=== PATIENT | female | born 1990 | race Caucasian/White ===

== ENCOUNTER 2022-02-11 19:36 | Emergency (ER) | payer SELFPAY ==
[2022-02-11 19:53] VITALS: BP 110/75; PULSE 83; RESP 20; TEMP 36.8; O2SAT 100; BMI 20.6
--- NOTE | 2022-02-11 20:30 | ED.NURSE ---
Pt stating she needs to use bathroom. Stone [employer]ader offering to walk pt to bathroom. Pt then refuses, stating she cannot use this bathroom and will use bathroom at home. Pt states she would like to leave. MD at bedside. D/c instructions printed and given to pt and pt's as they are walking out door. Pt and pt's refuse conference interpreter to go over d/c planning and verbalize understanding of all instructions. Pt leaves ER with all belongings.
--- NOTE | 2022-02-11 20:31 | ED.ANXIETY ---
HPI - Anxiety General Chief Complaint: Anxiety Stated Complaint: Allergic Reaction Time Seen by Provider: 02/11/22 19:55 History of Present Illness HPI narrative: This patient comes in with her and daughter and reports tingling feeling in her mouth and concern about her breathing after eating some sausage. She is hyperventilating and states that her tongue and lips are tingly as are her hands and fingers. She is very anxious and dramatic. 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 Related Data Previous Rx's Medication Instructions Recorded propranolol 10 mg tablet 10 - 20 mg PO BID #60 tabs 01/30/22 Allergies Allergy/AdvReac Type Severity Reaction Status Date / Time Ringer's solution,lactated Allergy Unknown Verified 02/11/22 20:06 Review of Systems Status of ROS: Reports: unobtainable due to mental status [facility] Medical History (Updated 02/11/22 @ 20:31 by Tristan Stubbs MD) Anxiety Fibroadenoma of left breast History of abnormal cervical Pap smear History of COVID-19 (03/2021) History of hypothyroidism History of iron deficiency anemia Intermittent asthma Menorrhagia Postural orthostatic tachycardia syndrome Family History (Updated 10/17/21 @ 15:53 by Teresa Greene) Aunt Uterine cancer Maternal Grandmother Uterine cancer Paternal Grandfather Diabetes High blood pressure Exam Narrative: Exam Narrative: Constitutional: Well-developed, well-nourished, no acute distress. HEENT: Normocephalic, atraumatic. No sign of angioedema. Oropharynx appears normal with no sign of airway compromise. Neck: Normal range of motion. Nontender. Supple. Heart: Regular. No murmurs. Normal rate. Intact distal pulses. Lungs: Clear to auscultation. No chest discomfort. No wheezes, rhonchi, or rales. Abdomen: Normal bowel sounds. Nontender. No rebound tenderness. Genitalia: Deferred. Back: No midline tenderness. Normal range of motion. Extremities: Normal range of motion. No injury. Skin: Intact. No rash. Warm. No erythema or pallor. Neurologic: No altered sensation. No weakness. Alert and oriented. Psychiatric: She is very anxious and rather uncooperative. Nursing notes and vitals signs are reviewed. Const: Vital Signs, click to edit/add: Vital Signs - 24 hr 02/11/22 19:53 Temperature 98.2 F Pulse Rate [Right Pulse Oximeter] 83 Respiratory Rate 20 Blood Pressure [Ri ght Upper Arm] 110/75 Pulse Oximetry 100 Oxygen Delivery Me thod Room Air Course Vital Signs Vital signs: Initial Vital Signs Temperature 98.2 F 02/11/22 19:53 Temperature Source Temporal Artery Scan 02/11/22 19:53 Pulse Rate 83 02/11/22 19:53 Pulse Rhythm 02/11/22 19:53 Respiratory Rate 20 02/11/22 19:53 Blood Pressure 110/75 02/11/22 19:53 Blood Pressure Mean 86 02/11/22 19:53 Blood Pressure Position Sitting 02/11/22 19:53 Pulse Oximetry 100 02/11/22 19:53 Oxygen Delivery Method 02/11/22 19:53 Vital Signs Temperature 98.2 F 02/11/22 19:53 Pulse Rate 83 02/11/22 19:53 Respiratory Rate 20 02/11/22 19:53 Blood Pressure 110/75 02/11/22 19:53 Pulse Oximetry 100 02/11/22 19:53 Oxygen Delivery Method 02/11/22 19:53 Temperature 98.2 F 02/11/22 19:53 Pulse Rate 83 02/11/22 19:53 Respiratory Rate 20 02/11/22 19:53 Blood Pressure 110/75 02/11/22 19:53 Pulse Oximetry 100 02/11/22 19:53 Oxygen Delivery Method 02/11/22 19:53 MDM - Anxiety MDM Narrative Medical decision making narrative: This patient comes in with some tingling sensation in her tongue after eating some sausage. She is hyperventilating and very anxious and dramatic. I offered to treat with Ativan which she declined. I discussed diagnostic options including lateral view x-ray of the neck, chest x-ray, and ultrasound. The patient is declining everything I am offering. I asked her which she would like or what she felt would help. She did not answer this question but continues to say that her tongue and lips feel tingly. This kind a conversation went round and round until I stated that I would return and asked again if they would desire any treatment or diagnostic options. The patient and her want to return home. They do have loratadine at home which can be used for relief. I advised her to slow her breathing as this is what is likely causing her tingling feeling. Discharge Plan Discharge Clinical Impression: Anxiety, Adverse food reaction, Hyperventilation Patient Disposition: Home, Self-Care Condition: Stable Additional Instructions: Use loratadine as needed and directed. Return if worsening symptoms happen. Prescriptions: No Action propranolol 10 mg tablet 10 - 20 mg PO BID Qty: 60 0RF Stand Alone Forms: [employer] Info Instructions
--- OUTSIDE RECORDS SUMMARY | 2022-02-11 20:37 | XMS_ITS ---
:1990 Author Care Team Providers Name Role Phone Carli Diaz Primary Care Provider Unavailable Allergies Code Code System Name Reaction Severity Status Onset NKDA ? Notes: lactate ringers electrolyte uriel ution Medications Name Status Start Date Stop Date ? ? albuterol sulfate HFA 90 mcg/actuation aerosol inhaler Active ? Not available INHALE 2 PUFFS EVERY 4 HOURS NEEDED COVID-19 test specimen collection Active ? Not available TEST DIRECTED fluconazole 100 mg tablet Active ? Not av ailable TAKE 1 TABLET BY MOUTH DAILY FOR 10 DAYS fluoxetine 20 mg capsule Active ? Not micah ilable TAKE 1 CAPSULE (20 MG TOTAL) BY MOUTH DAILY. hydroxyzine pamoate 25 mg capsule Active ? Not available ID NOW COVID-19 Test Kit Active ? Not micah ilable TEST DIRECTED TODAY lorazepam 1 mg tablet Active ? Not availa ble metoprolol tartrate 25 mg tablet Active ? Not available TAKE 0.5 TABLETS (12.5 MG TOTAL) BY MOUTH 2 (TWO) TIMES A DAY. multivitamin tablet Active ? Not availabl e Take 1 tablet every day by oral route. nystatin 100,000 unit/mL oral suspension Active ? Not available SWISH AND SWALLOW 5 ML BY MOUTH 4 TIMES DAILY. omeprazole 20 mg capsule,delayed release Active ? Not available TAKE 1 CAPSULE (20 MG TOTAL) BY MOUTH DAILY. June Montes [facility] spacer Active ? N ot available USE DIRECTED WITH INHALER prednisone 20 mg tablet Active ? Not avai lable TAKE TWO TABLETS BY MOUTH DAILY propranolol 10 mg tablet Active ? Not micah ilable TAKE 1-2 TABLETS BY MOUTH TWICE A DAY sertraline 25 mg tablet Active ? Not avai lable Take 1 tablet every day by oral route at bedtime. Notes: vitamins Problems Notes: Problem: Asthma Problem: derm atitis Procedures None recorded. Results Lab Results None recorded. Past Encounters 07/02/2021 Major Depressive Disorder Rg Walters MD: [id number] , [place] [address], Ph. 06/11/2021 Palpitations Rg Walters MD: [address] [place] [address], Ph. Social History None recorded. Vaccine List Notes: had one dose of COVID vaccine b ut had allergic rxn (Pfizer) Plan of Care Reminders Provider Appointments None recorded. ? ? Lab None recorded. ? ? Referral None recorded. ? ? Procedures None recorded. ? ? Surgeries None recorded. ? ? Imaging None recorded. ? ? Vitals 07/02/2021 05:30PM Any 30 Height Weight BMI Blood Pressure 5 ft 6 in 105 lbs 16.9 kg/m2 117/7 mm[Hg] 06/11/2021 05:30PM ESTABLISHED PATIENT 30 Height Weight BMI Blood Pressure 5 ft 6 in 108.6 lbs 17.5 kg/m2 120/83 mm[Hg]
== END 2022-02-11 20:48 | disposition home or self-care (01) ==
PROVIDERS: Emergency Provider Emergency Medicine Emergency Medical Services
DX: F41.9 Anxiety disorder, unspecified (principal); R06.4 Hyperventilation; T78.1XXA Other adverse food reactions, not elsewhere classified, initial encounter; R20.2 Paresthesia of skin
CPT/HCPCS: 99282; 99284

== ENCOUNTER 2022-12-25 14:42 | Emergency (ER) | payer SELFPAY ==
[2022-12-25 14:53] VITALS: BP 112/76; PULSE 76; RESP 12; TEMP 36.7; O2SAT 100; BMI 19.8
[2022-12-25 15:09] LABS: Appearance Urine Clear (Clear); Bilirubin Urine Negative (Negative); Blood Urine Negative (Negative); Color Urine Yellow (Yellow); Glucose Urine Negative (Negative); Ketones Urine Negative (Negative); Leukocyte Esterase Urine Negative (Negative); Nitrite Urine Negative (Negative); Protein Urine Negative (Negative); Specific Gravity Urine >= 1.030 (1.000-1.030); Urobilinogen Urine 0.2 (0.2-1.0); pH Urine 5.5 (5.0-8.5)
[2022-12-25 15:16] LABS: RBC Urine 0-2 (0-2); Squamous Epithelial Cell Urine Few (None-Few); WBC Urine 0-2 (0-5)
--- NOTE | 2022-12-25 15:26 | ED_ITS ---
HPI - Abdominal Pain General Time Seen by Provider: 15:26 Date Seen: 12/25/22 Chief Complaint: Abdominal Pain Stated Complaint: Abdominal pain Time Seen by Provider: 12/25/22 15:13 Source: patient, RN notes reviewed and certified court/medical interpreter Mode of arrival: ambulatory Limitations: no limitations Related Data Previous Rx's Medication Instructions Recorded propranolol 10 mg tablet 10 - 20 mg (1 - 2 x 10 mg) PO BID 01/30/22 #60 tabs Allergies Allergy/AdvReac Type Severity Reaction Status Date / Time Ringer's solution,lactated Allergy Unknown Difficulty Verified 12/25/22 14:52 Breathing COVID-19 vacc, bv (Orig, AdvReac Unknown Difficulty Verified 12/25/22 14:52 Omicron BA.4/5) ([employer]) Breathing [From [employer] COVID Bival(12y up)()] [facility] Medical History (Updated 02/26/22 @ 00:01 by Letty Patrick) Postural orthostatic tachycardia syndrome ?I49.8 - Other specified cardiac arrhythmias (ICD-10) Menorrhagia ?N92.0 - Excessive and frequent menstruation with regular cycle (ICD-10) History of iron deficiency anemia ?Z86.2 - Personal history of diseases of the blood and blood-forming organs and certain disorders involving the immune mechanism (ICD-10) History of abnormal cervical Pap smear ?Z87.42 - Personal history of other diseases of the female genital tract (ICD-10) Fibroadenoma of left breast ?D24.2 - Benign neoplasm of left breast (ICD-10) Intermittent asthma ?J45.20 - Mild intermittent asthma, uncomplicated (ICD-10) History of hypothyroidism ?Z86.39 - Personal history of other endocrine, nutritional and metabolic disease (ICD-10) History of COVID-19 (03/2021) ?Z86.16 - Personal history of COVID-19 (ICD-10) Anxiety ?F41.9 - Anxiety disorder, unspecified (ICD-10) Family History (Updated 10/17/21 @ 15:53 by Teresa Greene) Aunt Uterine cancer Maternal Grandmother Uterine cancer Paternal Grandfather Diabetes High blood pressure Social History Smoking Status: Unknown if ever smoked How often do you have a drink containing alcohol: never AUDIT-C Alcohol total score: 0 Non-prescribed substance use: denies use Exam Const: Vital Signs, click to edit/add: Vital Signs - 24 hr 12/25/22 14:53 Temperature 98.0 F Pulse Rate [Pulse Oximeter] 76 Respiratory Rate 12 Blood Pressure [Ri ght Upper Arm] 112/76 Pulse Oximetry 100 Oxygen Delivery Me thod Room Air Course Vital Signs Vital signs: Initial Vital Signs Temperature 98.0 F 12/25/22 14:53 Temperature Source Temporal Artery Scan 12/25/22 14:53 Pulse Rate 76 12/25/22 14:53 Pulse Rhythm Regular 12/25/22 14:53 Respiratory Rate 12 12/25/22 14:53 Blood Pressure 112/76 12/25/22 14:53 Blood Pressure Mean 88 12/25/22 14:53 Blood Pressure Position Sitting 12/25/22 14:53 Pulse Oximetry 100 12/25/22 14:53 Oxygen Delivery Method Room Air 12/25/22 14:53 Vital Signs Temperature 98.0 F 12/25/22 14:53 Pulse Rate 76 12/25/22 14:53 Respiratory Rate 12 12/25/22 14:53 Blood Pressure 112/76 12/25/22 14:53 Pulse Oximetry 100 12/25/22 14:53 Oxygen Delivery Method Room Air 12/25/22 14:53 Temperature 98.0 F 12/25/22 14:53 Pulse Rate 76 12/25/22 14:53 Respiratory Rate 12 12/25/22 14:53 Blood Pressure 112/76 12/25/22 14:53 Pulse Oximetry 100 12/25/22 14:53 Oxygen Delivery Method Room Air 12/25/22 14:53 MDM - Abdominal Pain Lab Data Labs: Lab Results 12/25/22 Range/Units 15:04 Urine Color Yellow (Yellow) Urine Appearance Clear (Clear) Urine pH 5.5 (5.0-8.5) Ur Specific [place] >= 1.030 (1.000-1.030) Urine Protein Negative (Negative) Urine Glucose (UA) Negative (Negative) Urine Ketones Negative (Negative) Urine Blood Negative (Negative) Urine Nitrite Negative (Negative) Urine Bilirubin Negative (Negative) Urine Urobilinogen 0.2 (0.2-1.0) Ur Leukocyte Esterase Negative (Negative) Urine RBC 0-2 (0-2) Urine WBC 0-2 (0-5) Ur Squamous Epith Cells Few (None-Few) Urine Bacteria None (None) Discharge Plan Discharge Prescriptions: No Action propranolol 10 mg tablet 10 - 20 mg PO BID Qty: 60 0RF Follow Up/Referrals: Provider,Not a Local [Primary Care Provider] -
--- NOTE | 2022-12-25 15:31 | CRLHL7_ITS ---
For Patients: As a result of the Century Cures Act, medical imaging exams and procedure reports are released immediately into your electronic medical record. You may view this report before your referring provider. If you have questions, please contact your health care provider. INDICATION: Concern for right ovarian torsion. No other history is provided. TECHNIQUE: Transabdominal and endovaginal pelvic ultrasound with spectral and color Doppler imaging. COMPARISON: None. FINDINGS: Uterus: 5.3 x 4.4 x 8.5 cm. Asymmetrical of focal thickening of the posterior uterine body myometrium which is heterogeneous and relatively echogenic. Such findings have been described in the setting of uterine adenomyosis. Clinical correlation is recommended as to the potential significance of this imaging finding. Endometrium: Transvaginal imaging was performed to better evaluate the endometrium. Endometrial thickness measures 9 mm. No sign of endometrial mass or fluid. Right ovary 3.0 x 2.4 x 3.6 cm. Left ovary 1.8 x 2.3 x 3.0 cm. No ovarian or adnexal masses. Normal bilateral arterial ovarian blood flow is demonstrated on spectral Doppler. Cul-de-sac: No significant free fluid. The technologist`s imaged images of a finding consistent with a nondilated appendix measuring up to 6 mm in caliber. Of note, however, it is not clear that this is a blind-ending tubular structure to indicate an appendix rather than a loop of small bowel. In any case, the finding is not considered significant. IMPRESSION: No acute findings. Clinical re-evaluation is suggested. Dictated by Rony Chakraborty MD @ 12/25/2022 4:52:06 PM (Electronically Signed)
[2022-12-25] MEDS: KETOROLAC 30 MG/ML inj IM (16:05)
[2022-12-25 16:14] LABS: Ur HCG Qualitative* Negative (Negative)
[2022-12-25 16:19] LABS: Basophils Absolute Auto 0.01 K/uL (0.00-0.30); Basophils Percent Auto 0.1 % (0.0-3.0); Eosinophils Absolute Auto 0.02 K/uL (0.00-0.50); Eosinophils Percent Auto 0.2 % (0.0-7.0); Hemoglobin* 13.9 gm/dL (12.0-16.0); Immature Granulocytes Abs Auto 0.01 K/uL (0.00-0.30); Immature Granulocytes Pct Auto 0.1 %; Lymphocytes Absolute Auto 2.41 K/uL (0.90-2.90); Lymphocytes Percent Auto 24.3 % (20-44); Mean Corpuscular HGB Conc 32 gm/dL (32-36); Mean Corpuscular Hemoglobin 28 pg (26-34); Mean Corpuscular Volume 87 fL (80-100); Monocytes Percent Auto 4.9 % (0.0-11.0); Neutrophils Absolute Auto 6.96 K/uL (1.7-7.0); Neutrophils Percent Auto 70.4 % (42.0-72.0); Platelet Count* 299 K/uL (140-440); RDW Coefficient of Variation % 11.7 % (11.5-15.5); Red Blood Count 4.96 m/uL (4.00-5.20)
--- NOTE | 2022-12-25 16:19 | ED_ITS ---
HPI - General Adult General Date Seen: 12/25/22 Chief complaint: Abdominal Pain Stated complaint: Abdominal pain Time Seen by Provider: 12/25/22 15:13 Source: patient and conservation planner Mode of arrival: ambulatory Limitations: no limitations History of Present Illness HPI narrative: Patient is a 32-year-old female presenting to the emergency department for right lower abdominal pain and pelvic pain. She states the pain is a going on since this past Thursday. Pain to states was gradually getting worsening acutely worse today. She denies ever having pain like this before. Says when the pain is at its worse she become nauseated but is not currently nauseated. At the worst the pain is an 8/10 lives currently 6/10. She has taken Tylenol for pain. His vaginal bleeding, vaginal pain, dysuria, previous abdominal surgeries, weakness, numbness, chest pain, shortness of breath, diarrhea, constipation, dysuria. She does note for the past 3 weeks she has been having a clear sense of discharge with no associated discomfort. She states the pain starts in her right pelvic region radiate to her gluteal region and down her right leg. Related Data Previous Rx's Medication Instructions Recorded propranolol 10 mg tablet 10 - 20 mg (1 - 2 x 10 mg) PO BID 01/30/22 #60 tabs Allergies Allergy/AdvReac Type Severity Reaction Status Date / Time Ringer's solution,lactated Allergy Unknown Difficulty Verified 12/25/22 14:52 Breathing COVID-19 vacc, bv (Orig, AdvReac Unknown Difficulty Verified 12/25/22 14:52 Omicron BA.4/5) ([employer]) Breathing [From [employer]izer COVID Bival(12y up)()] Review of Systems Status of ROS: Reports: 10 or more systems reviewed and unremarkable except as noted in History and below [facility] Medical History (Updated 12/25/22 @ 17:18 by Oscar Hudson DO) Postural orthostatic tachycardia syndrome ?I49.8 - Other specified cardiac arrhythmias (ICD-10) Menorrhagia ?N92.0 - Excessive and frequent menstruation with regular cycle (ICD-10) History of iron deficiency anemia ?Z86.2 - Personal history of diseases of the blood and blood-forming organs and certain disorders involving the immune mechanism (ICD-10) History of abnormal cervical Pap smear ?Z87.42 - Personal history of other diseases of the female genital tract (ICD-10) Fibroadenoma of left breast ?D24.2 - Benign neoplasm of left breast (ICD-10) Intermittent asthma ?J45.20 - Mild intermittent asthma, uncomplicated (ICD-10) History of hypothyroidism ?Z86.39 - Personal history of other endocrine, nutritional and metabolic disease (ICD-10) History of COVID-19 (03/2021) ?Z86.16 - Personal history of COVID-19 (ICD-10) Anxiety ?F41.9 - Anxiety disorder, unspecified (ICD-10) Family History (Updated 10/17/21 @ 15:53 by Teresa Greene) Aunt Uterine cancer Maternal Grandmother Uterine cancer Paternal Grandfather Diabetes High blood pressure Social History Smoking Status: Unknown if ever smoked How often do you have a drink containing alcohol: never AUDIT-C Alcohol total score: 0 Non-prescribed substance use: denies use Exam Narrative: Exam Narrative: Const: Well-nourished, Well-developed, in mild distress Eyes: PERRL, no conjunctival injection, and symmetrical lids ENMT: Atraumatic external nose and ears. Moist mucous membranes. Neck: Symmetric, trachea midline, No thyromegaly. CVS: RRR, No murmurs or gallops. Peripheral pulses 2+ and equal in all extremities RESP: Unlabored respiratory effort. Clear to auscultation bilaterally. GI: Tenderness right inguinal region, Nondistended, No rebound or guarding. MSK:Extremities w/o deformity, Normal Active ROM Skin: Warm, Dry. No rashes or lesions. Neuro: Normal Muscle tone, No focal neurological deficits. Psych: Awake, Alert, & Oriented x3. Appropriate mood and affect. Const: Vital Signs, click to edit/add: Vital Signs - 24 hr 12/25/22 14:53 12/25/22 17:34 Temperature 98.0 F Pulse Rate [Pulse Oximeter] 76 Respiratory Rate 12 Blood Pressure [Ri ght Upper Arm] 112/76 121/66 Pulse Oximetry 100 Oxygen Delivery Me thod Room Air Course Vital Signs Vital signs: Initial Vital Signs Temperature 98.0 F 12/25/22 14:53 Temperature Source Temporal Artery Scan 12/25/22 14:53 Pulse Rate 76 12/25/22 14:53 Pulse Rhythm Regular 12/25/22 14:53 Respiratory Rate 12 12/25/22 14:53 Blood Pressure 112/76 12/25/22 14:53 Blood Pressure Mean 88 12/25/22 14:53 Blood Pressure Position Sitting 12/25/22 14:53 Pulse Oximetry 100 12/25/22 14:53 Oxygen Delivery Method Room Air 12/25/22 14:53 Vital Signs Temperature 98.0 F 12/25/22 14:53 Pulse Rate 76 12/25/22 14:53 Respiratory Rate 12 12/25/22 14:53 Blood Pressure 112/76 12/25/22 14:53 Pulse Oximetry 100 12/25/22 14:53 Oxygen Delivery Method Room Air 12/25/22 14:53 Temperature 98.0 F 12/25/22 14:53 Pulse Rate 76 12/25/22 14:53 Respiratory Rate 12 12/25/22 14:53 Blood Pressure 121/66 12/25/22 17:34 Pulse Oximetry 100 12/25/22 14:53 Oxygen Delivery Method Room Air 12/25/22 14:53 Medical Decision Making [facility] Narrative Medical decision making narrative: Patient is a 32-year-old female presenting with blood in for right inguinal pain. Symptoms angle mass the days ago worse today. He says he is taking ibuprofen for it is negative, with some improvement in his symptoms. No fevers or chills. No nausea. Her symptoms are mildly concerning for ovarian torsion so we do a pelvic ultrasound. Cbc and CMP were also ordered showing no concerning abnormalities. She is given Toradol for pain which improved her pain significantly she says she feels well now. Urinalysis shows no concerning abnormalities. Urine test is negative. Ultrasound results showed possible adenomyosis but she is not having any vaginal bleeding or pain this is unlikely to be clinically significant at this time. The appendix looks normal but the CT did into the stay was seen on imaging is the appendix as the cannot say it is a blind pouch or not but concerning her pain is more in the inguinal region and not in the right lower abdomen region with normal white blood cell count appendicitis seems unlikely at this time. Ovaries looked normal and ovarian torsion seems unlikely at this time. After speaking to her again she does say she was doing a leg exercise my could be consistent with a cause of her pain. She was discharged home informed take ibuprofen for pain. She has agreed with this plan. Lab Data Labs: Lab Results 12/25/22 12/25/2223 Range/Units 15:04 16:00 16:07 WBC 9.90 (4.50-11.00) K/uL RBC 4.96 (4.00-5.20) m/uL Hgb 13.9 (12.0-16.0) gm/dL Hct 43.0 (33.0-51.0) % MCV 87 (80-100) fL MCH 28 (26-34) pg MCHC 32 (32-36) gm/dL RDW Coeff of Ann 11.7 (11.5-15.5) % Plt Count 299 (140-440) K/uL Neut % (Auto) 70.4 (42.0-72.0) % Lymph % (Auto) 24.3 (20-44) % [place] % (Auto) 4.9 (0.0-11.0) % Eos % (Auto) 0.2 (0.0-7.0) % Baso % (Auto) 0.1 (0.0-3.0) % Neut # (Auto) 6.96 (1.7-7.0) K/uL Lymph # (Auto) 2.41 (0.90-2.90) K/uL [place] # (Auto) 0.50 (0.00-0.90) K/UL Eos # (Auto) 0.02 (0.00-0.50) K/uL Baso # (Auto) 0.01 (0.00-0.30) K/uL Abs Immat Gran (auto) 0.01 (0.00-0.30) K/uL Imm/Tot Granulo (auto) 0.1 % Sodium 138 (135-149) mmol/L Potassium 3.9 (3.6-5.1) mmol/L Chloride 103 (96-114) mmol/L Carbon Dioxide 24 (20-32) mmol/L Anion Gap 11 (7-15) mEq/L BUN 12 (5-24) mg/dL Creatinine 0.6 (0.5-1.5) mg/dL Estimated Creat Clear 113.52 Estimated GFR 121 ml/min Glucose 92 (60-115) mg/dL Calcium 9.6 (8.4-10.6) mg/dL Total Bilirubin 0.8 (0.1-1.5) mg/dL AST 35 (12-35) U/L ALT 26 (4-35) U/L Alkaline Phosphatase 57 (40-150) U/L Total Protein 8.4 H (6.0-8.3) g/dL Albumin 4.9 (3.3-5.0) g/dL Urine Color Yellow (Yellow) Urine Appearance Clear (Clear) Urine pH 5.5 (5.0-8.5) Ur Specific [place] >= 1.030 (1.000-1.030) Urine Protein Negative (Negative) Urine Glucose (UA) Negative (Negative) Urine Ketones Negative (Negative) Urine Blood Negative (Negative) Urine Nitrite Negative (Negative) Urine Bilirubin Negative (Negative) Urine Urobilinogen 0.2 (0.2-1.0) Ur Leukocyte Esterase Negative (Negative) Urine RBC 0-2 (0-2) Urine WBC 0-2 (0-5) Ur Squamous Epith Cells Few (None-Few) Urine Bacteria None (None) Urine HCG, Qual Negative (Negative) Imaging Data Pelvic ultrasound: Radiologist's impression: INDICATION: Concern for right ovarian torsion. No other history is provided. TECHNIQUE: Transabdominal and endovaginal pelvic ultrasound with spectral and color Doppler imaging. COMPARISON: None. FINDINGS: Uterus: 5.3 x 4.4 x 8.5 cm. Asymmetrical of focal thickening of the posterior uterine body myometrium which is heterogeneous and relatively echogenic. Such findings have been described in the setting of uterine adenomyosis. Clinical correlation is recommended as to the potential significance of this imaging finding. Endometrium: Transvaginal imaging was performed to better evaluate the endometrium. Endometrial thickness measures 9 mm. No sign of endometrial mass or fluid. Right ovary 3.0 x 2.4 x 3.6 cm. Left ovary 1.8 x 2.3 x 3.0 cm. No ovarian or adnexal masses. Normal bilateral arterial ovarian blood flow is demonstrated on spectral Doppler. Cul-de-sac: No significant free fluid. The technologist`s imaged images of a finding consistent with a nondilated appendix measuring up to 6 mm in caliber. Of note, however, it is not clear that this is a blind-ending tubular structure to indicate an appendix rather than a loop of small bowel. In any case, the finding is not considered significant. IMPRESSION: No acute findings. Clinical re-evaluation is suggested. Dictated by Rony Chakraborty MD @ 12/25/2022 4:52:06 PM Discharge Plan Discharge Clinical Impression: Strain of right groin Patient Disposition: Home, Self-Care Condition: Improved Instructions: Groin Strain (ED) Additional Instructions: Take Tylenol and ibuprofen for pain. Likely the ibuprofen would probably help more but you can take both. I believe you have a right muscular groin strain. Return for new or worsening symptoms. Dali Acetaminofen e Ibuprofeno para dolor. Es posible que el ibuprofeno te ayuda mas, ranjana puede tomarse los dos medicamentos. El doctor missy que tienes distension inguinal. Regrese a la dante de emergencia si blas simptoma empeoran. Prescriptions: No Action propranolol 10 mg tablet 10 - 20 mg PO BID Qty: 60 0RF Follow Up/Referrals: Provider,Not a Local [Primary Care Provider] - Stand Alone Forms: [employer] Info Instructions
[2022-12-25 16:22] LABS: Albumin* 4.9 g/dL (3.3-5.0); Chloride* 103 mmol/L (96-114); Slide Review Reflex No
[2022-12-25 16:23] LABS: Potassium* 3.9 mmol/L (3.6-5.1); Sodium* 138 mmol/L (135-149)
[2022-12-25 16:25] LABS: Alanine Aminotransferase* 26 U/L (4-35); Alkaline Phosphatase* 57 U/L (40-150); Anion Gap 11 mEq/L (7-15); Aspartate Amino Transferase* 35 U/L (12-35); Bilirubin Total* 0.8 mg/dL (0.1-1.5); Blood Urea Nitrogen* 12 mg/dL (5-24); Carbon Dioxide* 24 mmol/L (20-32); Creatinine* 0.6 mg/dL (0.5-1.5); Est. Creatinine Clearance* 113.52; Estimated Glomerular Filt Rate 121 ml/min; Glucose* 92 mg/dL (60-115); Total Protein* 8.4 g/dL (6.0-8.3)
[2022-12-25 16:26] LABS: Calcium* 9.6 mg/dL (8.4-10.6)
[2022-12-25 17:34] VITALS: BP 121/66
== END 2022-12-25 17:38 | disposition home or self-care (01) ==
PROVIDERS: Emergency Provider Student in an Organized Health Care Education/Training Program
DX: S39.011A Strain of muscle, fascia and tendon of abdomen, initial encounter (principal)
CPT/HCPCS: 36415; 76856; 80053; 81001; 81025; 85025; 93976; 96372; 99283; 99284; J1885

== ENCOUNTER 2023-01-17 16:10 | Emergency (ER) | payer SELFPAY ==
[2023-01-17] VITALS (8 sets, daily range): BP systolic 114–120; BP diastolic 66–78; PULSE 76–93; RESP 16–20; TEMP 37.2; O2SAT 95–100
--- NOTE | 2023-01-17 16:32 | ED.GENADULT ---
HPI - General Adult General Time Seen by Provider: 16:32 Date Seen: 01/17/23 Chief complaint: Abdominal Pain Stated complaint: Hard stomach and pain-trying for polystyrene molding machine tender Time Seen by Provider: 01/17/23 16:31 History of Present Illness HPI narrative: History obtained through [place] polystyrene molding machine tender line on the iPad This is a 32-year-old female who presents to the ER today with her for evaluation of right lower quadrant abdominal pain that radiates through to her right low back, right hip, and sometimes down her right medial thigh. She has been having these symptoms for about a month or so, they tend to be worse when she is up and moving and better when she holds still. Sometimes they are worse when she eats and better when she not eat. No other associated symptoms. No fever. No chills. No nausea or vomiting. Bowel months sometimes are soft but not really diarrhea. No bloody stool. No dysuria, urgency, frequency. Last menstrual cycle was last week and was otherwise normal. She does not think she is . Her pain has been getting worse for the past couple of days so she saw a doctor in [facility] today. They were going to order a CT scan of her abdomen on Thursday. However a couple of hours prior to her presentation here her pain got worse. Unclear what made the pain worse. She was seen in the ER on 12/25 for evaluation of abdominal/pelvic/groin pain. Workup included pelvic ultrasound. FINDINGS: Uterus: 5.3 x 4.4 x 8.5 cm. Asymmetrical of focal thickening of the posterior uterine body myometrium which is heterogeneous and relatively echogenic. Such findings have been described in the setting of uterine adenomyosis. Clinical correlation is recommended as to the potential significance of this imaging finding. Endometrium: Transvaginal imaging was performed to better evaluate the endometrium. Endometrial thickness measures 9 mm. No sign of endometrial mass or fluid. Right ovary 3.0 x 2.4 x 3.6 cm. Left ovary 1.8 x 2.3 x 3.0 cm. No ovarian or adnexal masses. Normal bilateral arterial ovarian blood flow is demonstrated on spectral Doppler. Cul-de-sac: No significant free fluid. The technologist`s imaged images of a finding consistent with a nondilated appendix measuring up to 6 mm in caliber. Of note, however, it is not clear that this is a blind-ending tubular structure to indicate an appendix rather than a loop of small bowel. In any case, the finding is not considered significant. IMPRESSION: No acute findings. Clinical re-evaluation is suggested. Past medical history also include COVID long Steven syndrome, POTS, menorrhagia, history of anemia, abnormal Pap smear, intermittent asthma, anxiety Related Data Previous Rx's Medication Instructions Recorded propranolol 10 mg tablet 10 - 20 mg (1 - 2 x 10 mg) PO BID 01/30/22 #60 tabs ketorolac 10 mg tablet 10 mg PO Q8H PRN pain #10 tabs 01/17/23 Allergies Allergy/AdvReac Type Severity Reaction Status Date / Time Ringer's solution,lactated Allergy Unknown Difficulty Verified 12/25/22 14:52 Breathing COVID-19 vacc, bv (Orig, AdvReac Unknown Difficulty Verified 12/25/22 14:52 Omicron BA.4/5) (Pfizer) Breathing [From Pfizer COVID Bival(12y up)()] [facility] History (Updated 01/17/23 @ 19:44 by Og Alarcon MD) Postural orthostatic tachycardia syndrome ?I49.8 - Other specified cardiac arrhythmias (ICD-10) Menorrhagia ?N92.0 - Excessive and frequent menstruation with regular cycle (ICD-10) History of iron deficiency anemia ?Z86.2 - Personal history of diseases of the blood and blood-forming organs and certain disorders involving the immune mechanism (ICD-10) History of abnormal cervical Pap smear ?Z87.42 - Personal history of other diseases of the female genital tract (ICD-10) Fibroadenoma of left breast ?D24.2 - Benign neoplasm of left breast (ICD-10) Intermittent asthma ?J45.20 - Mild intermittent asthma, uncomplicated (ICD-10) History of hypothyroidism ?Z86.39 - Personal history of other endocrine, nutritional and metabolic disease (ICD-10) History of COVID-19 (03/2021) ?Z86.16 - Personal history of COVID-19 (ICD-10) Anxiety ?F41.9 - Anxiety disorder, unspecified (ICD-10) Family History (Updated 10/17/21 @ 15:53 by Teresa Greene) Aunt Uterine cancer Maternal Grandmother Uterine cancer Paternal Grandfather Diabetes High blood pressure Social History Smoking Status: Unknown if ever smoked How often do you have a drink containing alcohol: never AUDIT-C Alcohol total score: 0 Non-prescribed substance use: denies use Exam Narrative: Exam Narrative: Constitutional: Appears well-developed and well-nourished. Alert. Conversant through pantograph machine set up operator. She is very anxious. She is worried about potential side effects from pain medicine that I suggest. Ultimately she is willing to try Toradol but nothing else. Non toxic. HENT: Head: Atraumatic. Nose: Nose normal. Mouth/Throat: Oral mucosa is clear and moist. no trismus. Pharynx normal. Tonsils symmetric. No tonsillar enlargement, erythema, or exudate. Eyes: Conjunctivae normal. EOM normal. Pupils equal, round, and reactive to light. No scleral icterus. Neck: Normal range of motion. Neck supple. No tracheal deviation present. Cardiovascular: Normal rate, regular rhythm. No gallop. No friction rub. No murmur heard. Symmetric radial artery pulses Pulmonary/Chest: Effort normal. No stridor. No respiratory distress. No wheezes. No rales. No rhonchi . No tenderness. Abdominal: Soft. Bowel sounds normal. No distension. No mass. Right lower quadrant tenderness. She also endorses pain with flexing her right hip. No rebound. No guarding. Musculoskeletal: RUE: Normal range of motion. No tenderness. No deformity LUE: Normal range of motion. No tenderness. No deformity RLE: She has pain over her right anterior superior iliac spine and right groin. No definite mass there. Normal range of motion in her hip, knee. She has pain with flexing the hip and lifting the right leg off the bed. No edema. No tenderness. No deformity LLE: Normal range of motion. No edema. No tenderness. No deformity Lymph: No cervical adenopathy. Neurological: Alert and oriented to person, place, and time. Normal strength. CN II-VII intact. No sensory deficit. GCS eye subscore is 4. GCS verbal subscore is 5. GCS motor subscore is 6. Normal coordination Skin: Skin is warm and dry. No rash noted. No pallor. Normal capillary refill. Psychiatric: Normal mood. Normal affect. Const: Vital Signs, click to edit/add: Vital Signs - 24 hr 01/17/23 16:14 01/17/23 19:00 01/17/23 19:34 Temperature 98.9 F Pulse Rate 93 Pulse Rate [Pulse Oximeter] 76 92 Respiratory Rate 20 16 16 Blood Pressure 115/77 Blood Pressure [Ri ght Upper Arm] 119/75 120/76 Pulse Oximetry 100 95 100 Oxygen Delivery Me thod Room Air Room Air Room Air 01/17/23 19:35 01/17/23 19:45 01/17/23 19:47 Temperature Pulse Rate 88 92 83 Pulse Rate [Pulse Oximeter] Respiratory Rate 16 Blood Pressure 116/78 Blood Pressure [Ri ght Upper Arm] Pulse Oximetry 100 100 100 Oxygen Delivery Me thod Room Air 01/17/23 20:00 01/17/23 20:01 Temperature Pulse Rate 90 83 Pulse Rate [Pulse Oximeter] Respiratory Rate Blood Pressure 114/66 Blood Pressure [Ri ght Upper Arm] Pulse Oximetry 100 100 Oxygen Delivery Me thod Course Course ED Course: I had ordered a CT scan after discussing with the patient and her . Patient was taken over for CT imaging but refused IV contrast setting concerned that it might cause side effects. She was brought back to the ER. I met with the patient and her . We discussed this through the polystyrene molding machine tender phone. She then agreed that she would do the CT with contrast since it is going to be more accurate for pathology such as appendicitis or psoas abscess the noncontrast CT. She endorses a lot of anxiety. Reevaluation(s) Reevaluation #1: Recheck-CT back in normal. Vital Signs Vital signs: Initial Vital Signs Temperature 98.9 F 01/17/23 16:14 Temperature Source Temporal Artery Scan 01/17/23 16:14 Pulse Rate 76 01/17/23 16:14 Respiratory Rate 20 01/17/23 16:14 Blood Pressure 119/75 01/17/23 16:14 Blood Pressure Mean 89 01/17/23 16:14 Blood Pressure Position Supine 01/17/23 16:14 Pulse Oximetry 100 01/17/23 16:14 Oxygen Delivery Method Room Air 01/17/23 16:14 Vital Signs Temperature 98.9 F 01/17/23 16:14 Pulse Rate 76 01/17/23 16:14 Respiratory Rate 20 01/17/23 16:14 Blood Pressure 119/75 01/17/23 16:14 Pulse Oximetry 100 01/17/23 16:14 Oxygen Delivery Method Room Air 01/17/23 16:14 Temperature 98.9 F 01/17/23 16:14 Pulse Rate 83 01/17/23 20:01 Respiratory Rate 16 01/17/23 19:47 Blood Pressure 114/66 01/17/23 20:01 Pulse Oximetry 100 01/17/23 20:01 Oxygen Delivery Method Room Air 01/17/23 19:47 Medical Decision Making MDM Narrative Medical decision making narrative: Presented to the Emergency Department with right lower quadrant abdominal pain radiating through to her right hip and right buttock and sometimes down her right medial thigh. The differential diagnosis of her abdominal pain includes: Appendicitis, Bowel Obstruction, Ulcer, Ischemia, Cholecystitis, Diverticulitis, Pancreatitis, UTI, kidney stone, Enteritis/Colitis, amongst many other etiologies. She has already had previous gynecologic imaging with pelvic ultrasound that was essentially normal. Laboratory testing does not reveal a cause for the patient's pain. CT Imaging is noted to be normal. The exact etiology of the abdominal pain is not clear at this time. No exam evidence to suggest inguinal hernia. No life threatening cause or need for emergent surgery or hospital admission is detected today. I wonder if this may be musculoskeletal or possibly related to hip joint pathology. Consider also possible endometriosis. The patient was advised that if symptoms do not completely resolve within another 1-2 days re-evaluation with primary care or return to the ED is indicated. Will recommend follow-up with Gynecology with consideration for endometriosis workup. She does not currently have piece dyer. She would agree to follow up with Dr. Mathews through the [facility]. The patient also understands that if they worsen, they should return to the ER right away. I discussed the uncertainty about the diagnosis and answered the patient's questions. Abdominal pain return precautions discussed. She is very worried about any potential side effects from medicines. She would be willing to take a prescription for Toradol which she would take since she was given here in the ER without side effects. Lab Data Labs: Lab Results 01/17/23 01/17/23 Range/Units 17:33 17:40 WBC 9.13 (4.50-11.00) K/uL RBC 4.87 (4.00-5.20) m/uL Hgb 13.7 (12.0-16.0) gm/dL Hct 42.7 (33.0-51.0) % MCV 88 (80-100) fL MCH 28 (26-34) pg MCHC 32 (32-36) gm/dL RDW Coeff of Ann 11.9 (11.5-15.5) % Plt Count 261 (140-440) K/uL Neut % (Auto) 65.5 (42.0-72.0) % Lymph % (Auto) 25.6 (20-44) % [place] % (Auto) 8.2 (0.0-11.0) % Eos % (Auto) 0.4 (0.0-7.0) % Baso % (Auto) 0.2 (0.0-3.0) % Neut # (Auto) 5.97 (1.7-7.0) K/uL Lymph # (Auto) 2.34 (0.90-2.90) K/uL [place] # (Auto) 0.70 (0.00-0.90) K/UL Eos # (Auto) 0.04 (0.00-0.50) K/uL Baso # (Auto) 0.02 (0.00-0.30) K/uL Abs Immat Gran (auto) 0.01 (0.00-0.30) K/uL Imm/Tot Granulo (auto) 0.1 % Sodium 139 (135-149) mmol/L Potassium 3.6 (3.6-5.1) mmol/L Chloride 102 (96-114) mmol/L Carbon Dioxide 26 (20-32) mmol/L Anion Gap 11 (7-15) mEq/L BUN 15 (5-24) mg/dL Creatinine 0.7 (0.5-1.5) mg/dL Estimated GFR 116 ml/min Glucose 86 (60-115) mg/dL Calcium 9.0 (8.4-10.6) mg/dL Total Bilirubin 0.8 (0.1-1.5) mg/dL AST 26 (12-35) U/L ALT 19 (4-35) U/L Alkaline Phosphatase 52 (40-150) U/L Total Protein 8.1 (6.0-8.3) g/dL Albumin 4.7 (3.3-5.0) g/dL Lipase 81 (23-300) U/L Urine Color Yellow (Yellow) Urine Appearance Clear (Clear) Urine pH 7.0 (5.0-8.5) Ur Specific [place] 1.015 (1.000-1.030) Urine Protein Negative (Negative) Urine Glucose (UA) Negative (Negative) Urine Ketones Negative (Negative) Urine Blood Negative (Negative) Urine Nitrite Negative (Negative) Urine Bilirubin Negative (Negative) Urine Urobilinogen 0.2 (0.2-1.0) Ur Leukocyte Esterase Negative (Negative) Urine RBC 0-2 (0-2) Urine WBC 0-2 (0-5) Ur Squamous Epith Cells Moderate A (None-Few) Urine Bacteria Moderate A (None) Urine Mucus Many A (None) Urine HCG, Qual Negative (Negative) Imaging Data CT scan - abdomen: Attestation: I have reviewed the pertinent imaging results. Radiologist's impression: IMPRESSION: No acute findings within the abdomen and pelvis. Normal appendix. Trace amount of free fluid in the pelvis, likely physiologic. Discharge Plan Discharge Clinical Impression: Acute right hip pain, Anxiety, Abdominal pain, acute, right lower quadrant Patient Disposition: Home, Self-Care Condition: Stable Instructions: Hip Pain (ED), Pelvic Pain (ED) Additional Instructions: Please call the [facility] at [phone] on Thursday morning to schedule a checkup appointment with the security solutions architect. As we discussed, if you have any problems such as worsening pain, high fever, heavy vaginal bleeding, weakness or numbness down your leg, or any concerns, please return to the ER right away. Prescriptions: New ketorolac 10 mg tablet 10 mg PO Q8H PRN (Reason: pain) Qty: 10 0RF No Action propranolol 10 mg tablet 10 - 20 mg PO BID Qty: 60 0RF Follow Up/Referrals: Provider,Not a Local [Primary Care Provider] - Stand Alone Forms: Content Syndicate: Words on [employer] Info Instructions
--- NOTE | 2023-01-17 17:00 | CRLHL7_ITS ---
For Patients: As a result of the Century Cures Act, medical imaging exams and procedure reports are released immediately into your electronic medical record. You may view this report before your referring provider. If you have questions, please contact your health care provider. INDICATION: Right lower quadrant pain, right hip pain TECHNIQUE: CT abdomen and pelvis acquired with 58 cc Isovue 370 IV contrast. Permanently recorded images are archived. COMPARISON: None. FINDINGS: Lower chest: Mild pectus excavatum. Liver: Unremarkable. Normal in size and attenuation. No suspicious masses. Gallbladder and bile ducts: Unremarkable. No stones or inflammation. No biliary dilatation. Pancreas: Unremarkable. No mass or inflammation. Spleen: Unremarkable. Normal in size. No masses. Adrenal glands: Unremarkable. No nodules. Kidneys, Ureters, and Bladder: Unremarkable. No suspicious masses, stones, or hydronephrosis. Unremarkable ureters and bladder. GI tract: Unremarkable. Normal in caliber. No sign of inflammation. Normal appendix. Vasculature: Abdominal aorta is normal in caliber. Mesenteric arteries are patent. Lymph nodes: No lymphadenopathy. Peritoneum/Abdominal Wall: Trace amount of free fluid in the pelvis, likely physiologic. No free air. Unremarkable abdominal wall. Pelvis: Unremarkable. Bones: Unremarkable for age. IMPRESSION: No acute findings within the abdomen and pelvis. Normal appendix. Trace amount of free fluid in the pelvis, likely physiologic. Please note that all CT scans at this facility use dose modulation, iterative reconstruction, and/or weight-based dosing when appropriate to reduce radiation dose to as low as reasonably achievable. Dictated by Og Tobias MD @ 01/17/2023 7:01:38 PM (Electronically Signed)
[2023-01-17] MEDS: KETOROLAC 15 MG/ML inj IVP (17:48)
[2023-01-17 17:50] LABS: Appearance Urine Clear (Clear); Bilirubin Urine Negative (Negative); Blood Urine Negative (Negative); Color Urine Yellow (Yellow); Glucose Urine Negative (Negative); Ketones Urine Negative (Negative); Leukocyte Esterase Urine Negative (Negative); Nitrite Urine Negative (Negative); Protein Urine Negative (Negative); Specific Gravity Urine 1.015 (1.000-1.030); Ur HCG Qualitative* Negative (Negative); Urobilinogen Urine 0.2 (0.2-1.0)
[2023-01-17 18:05] LABS: Basophils Absolute Auto 0.02 K/uL (0.00-0.30); Basophils Percent Auto 0.2 % (0.0-3.0); Eosinophils Absolute Auto 0.04 K/uL (0.00-0.50); Eosinophils Percent Auto 0.4 % (0.0-7.0); Hematocrit 42.7 % (33.0-51.0); Hemoglobin* 13.7 gm/dL (12.0-16.0); Immature Granulocytes Abs Auto 0.01 K/uL (0.00-0.30); Immature Granulocytes Pct Auto 0.1 %; Lymphocytes Absolute Auto 2.34 K/uL (0.90-2.90); Lymphocytes Percent Auto 25.6 % (20-44); Mean Corpuscular HGB Conc 32 gm/dL (32-36); Mean Corpuscular Hemoglobin 28 pg (26-34); Mean Corpuscular Volume 88 fL (80-100); Monocytes Percent Auto 8.2 % (0.0-11.0); Neutrophils Absolute Auto 5.97 K/uL (1.7-7.0); Neutrophils Percent Auto 65.5 % (42.0-72.0); Platelet Count* 261 K/uL (140-440); RDW Coefficient of Variation % 11.9 % (11.5-15.5); Red Blood Count 4.87 m/uL (4.00-5.20); White Blood Count* 9.13 K/uL (4.50-11.00)
[2023-01-17 18:19] LABS: Slide Review Reflex No
[2023-01-17 18:23] LABS: Albumin* 4.7 g/dL (3.3-5.0); Chloride* 102 mmol/L (96-114); Sodium* 139 mmol/L (135-149)
[2023-01-17 18:24] LABS: Potassium* 3.6 mmol/L (3.6-5.1)
[2023-01-17 18:26] LABS: Alanine Aminotransferase* 19 U/L (4-35); Alkaline Phosphatase* 52 U/L (40-150); Anion Gap 11 mEq/L (7-15); Aspartate Amino Transferase* 26 U/L (12-35); Bilirubin Total* 0.8 mg/dL (0.1-1.5); Blood Urea Nitrogen* 15 mg/dL (5-24); Carbon Dioxide* 26 mmol/L (20-32); Creatinine* 0.7 mg/dL (0.5-1.5); Estimated Glomerular Filt Rate 116 ml/min; Glucose* 86 mg/dL (60-115); Lipase* 81 U/L (23-300); Total Protein* 8.1 g/dL (6.0-8.3)
[2023-01-17 18:29] LABS: Bacteria Urine Moderate; RBC Urine 0-2 (0-2); Squamous Epithelial Cell Urine Moderate (None-Few); WBC Urine 0-2 (0-5)
[2023-01-17 18:30] LABS: Mucus Urine Many
--- NOTE | 2023-01-17 20:06 | ED.NURSE ---
YupiCall classification and treatment director was used for interactions with Pt and SO.
== END 2023-01-17 20:10 | disposition home or self-care (01) ==
PROVIDERS: Emergency Provider Emergency Medicine
DX: M25.551 Pain in right hip (principal); F41.9 Anxiety disorder, unspecified; R10.31 Right lower quadrant pain
CPT/HCPCS: 36415; 74177; 80053; 81001; 81025; 83690; 85025; 87086; 96374; 99284; J1885; Q9967

== ENCOUNTER 2023-03-03 16:35 | Outpatient (CLI) | payer OTHER, SELFPAY ==
[2023-03-03 21:49] LABS: Chlamydia DNA Amplified* NOT DETECTED (No Detected); GC DNA Amplified* NOT DETECTED (No Detected)
== END 2023-03-03 16:36 | disposition home or self-care (01) ==
LOC: NFLDREF 16:35
PROVIDERS: Visit Provider Obstetrics & Gynecology
DX: R10.2 Pelvic and perineal pain (principal)
CPT/HCPCS: 87491; 87591

== ENCOUNTER 2024-05-12 00:20 | Emergency (ER) | payer OTHER, SELFPAY ==
--- OUTSIDE RECORDS SUMMARY | 2024-05-12 00:23 | XMS_ITS | Clinical Summary ---
Author Organization [facility] [facility] Address [place], [place] [address] Care Team Providers Care Customs Compliance Analyst Name Role Phone Jazzmine Meadows MD Primary Care Prov ider Allergies Active Allergy Reactions Criticality Noted Date Comments Latex Rash 06/06/2023 Ringer's Solution,Lactated Shortness Of Breath,Other - Describe In Comment Field,Dyspnea 01/07/2021 Muscles spasms and troubles breathing bronchial spasms Tramadol *Unknown 12/14/2023 Medications propranoloL (INDERAL) 10 mg tabletIndicatio ns:Anxiety Take 1 Tablet (10 mg) by mouth two times daily. 180 Tablet 3 10/28/2023 Active magnesium oxide (MAG-OX 400) 400 mg tabletIndicatio ns:Myalgia Take 1 Tablet (400 mg) by mouth once daily. 90 Tablet 3 12/29/2023 Active meloxicam (MOBIC) 7.5 mg tabletIndicatio ns:Chronic pelvic pain in female Take 1 Tablet (7.5 mg) by mouth once daily. 90 Tablet 04/08/2024 Active DULoxetine (CYMBALTA) 30 mg Delayed-release capsuleIndicati ons:Chronic pelvic pain in female Take 1 Capsule (30 mg) by mouth once daily. 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 Mammogram/US at [facility] in 2022. Abnormal uterine bleeding 04/28/2023 POTS (postural orthostatic tachycardia syndrome) 10/06/2021 Lyndsey vaginitis 10/06/2021 Overview (10/06/2021): Recurrent Protein-calorie malnutrition 07/22/2021 ASCUS of cervix with negative high risk HPV 04/2021 Overview (08/26/2021): 07/2021 ASCUS/HPV negative. Plan: Pap/HPV due 07/2024. Iron deficiency anemia 06/13/2021 Resolved Problems Problem Noted Date Diagnosed Date Resolved Date Moderate persistent asthma w ithout complication 10/06/2021 04/09/2024 Encounters Date Type Department Care Team Description 2024 Patient Outreach [facility] Care Management - Care Management Navigation/[facility] [address] [place] [address] Freddy Tang-Community Resource Navigation 04/18/2024 4:00 PM STEMMING MACHINE OPERATOR Office Visit [facility] [address] [place] [address] Karthikeyan Joe, ADALBERTO Eye Exam (CEE) 04/18/2024 Telephone [facility] [address] [place] [address] Baltazar Diaz MD Referral (INTEGRATIVE MEDICINE) 04/18/2024 Travel 04/18/2024 Telephone [facility] [address] [place] [address] Arline Lora PA Results (Test Results ) 04/14/2024 Telephone [facility] [address] [place] [address] Jazzmine Meadows MD Referral ([facility] [place]) 04/12/2024 3:20 PM STEMMING MACHINE OPERATOR Telemedicine [address] [phone] Fuad, Bill Macario MD Consult 04/08/2024 7:50 AM STEMMING MACHINE OPERATOR Office Visit [facility] [address] [place] [address] Arline Lora PA Pelvis Pain/problem (Has endometriosis-has been having a lot of pain-had IUD placed to help-lessened bleeding but still having a lot of pain) 04/08/2024 Travel 03/24/2024 3:15 PM STEMMING MACHINE OPERATOR Orders Only [facility] [address] [place] [id number] Lab, [place] [facility] 03/24/2024 Travel 02/24/2024 Nurse Triage [facility] [address] [place] [address] Jazzmine Meadows MD UTI (Vaginal odor 15 days. No discharge. No UTI symptoms today) from Last 3 Months Family History Medical History Relation Name Comments No Known Problems Daughter Diabetes type II Father Hiatal hernia Father Other Father Dyspepsia Uterine cancer Maternal Grandmother Good Health Mother Other Mother Hepatic hemangi augie Diabetes Paternal Grandfather Hypertension Paternal Grandfather No Known Problems Sister Cancer-breast No Family History Relation Name Status Comments Daughter Father Alive Maternal Grandmother Mother Alive Paternal Grandfather Sister Alive Social History Tobacco Use Types Packs/Day Years Used Date Smoking Tobacco: Never Passive Smoke Exposure: Never Smokeless Tobacco: Never Tobacco Cessation:Counseling Given: Not Answered Alcohol Use Standard Drinks/Week Comments Never 0 (1 standard drink = 0.6 oz pur e alcohol) PHQ-2 Answer Date Recorded PHQ-2 TOTAL SCORE 1 07/26/2021 Social Connections Answer Date Recorded Do you often feel lonely or isolated from those around you? 0 04/08/2024 Financial Resource Strain Answer Date R ecorded Difficulty of Paying Living Expenses 1 04/08/2024 Difficulty of Paying Living Expenses 2 04/08/2024 Food Insecurity Answer Date Recorded Do you worry your food will run out before you are able to buy more? 1 04/08/2024 Transportation Needs Answer Date Record ed Does lack of transportation keep you from medica l appointments? 2 04/08/2024 Does lack of transportation keep you from work, meetings or getting things that you need? 1 04/08/2024 Housing Stability Answer Date Recorded What is your housing situation today? 2 04/08/2024 Interpersonal Safety Answer Date Record ed Are you being hit, kicked, p ushed or yelled at (see row info)? No 06/06/2023 Interpersonal Safety Abuse 12 - 18 Not on file 06/06/2023 Interpersonal Safety Ambulatory Vulnerability No t on file 06/06/2023 Utilities Answer Date Recorded Do you have trouble paying f or utilities (for example, heat, electricity, water, phone)? 1 04/08/2024 Comments No Sex and Gender Information Value Date Recorded Sex Assigned at Not on file Legal Sex Female 2:59 PM CDT Gender Identity Not on file Sexual Orientation Not on file Occupation Industry Job Start Date Job End Date Not on file Not on file Not on file Not on file Obstetrics History Para Term AB IAB SAB Ectopic Multiple Livin g Live Births 3 Date Outcome GA Total Labor Labor/2nd/3rd Weight Sex Type Anes PTL Eva A1 A5 Name Clin Last Filed Vital Signs Vital Sign Reading Time Taken Comments Blood Pressure 123/83 04/08/2024 8:15 AM STEMMING MACHINE OPERATOR Pulse 73 04/08/2024 8:15 AM STEMMING MACHINE OPERATOR Temperature 36.4 C (97.5 F) 06/06/2023 10:52 PM STEMMING MACHINE OPERATOR Respiratory Rate 18 06/06/2023 10:52 PM STEMMING MACHINE OPERATOR Oxygen Saturation 99% 04/08/2024 8:15 AM STEMMING MACHINE OPERATOR Inhaled Oxygen Concentration - - Weight 53.1 kg (117 lb) 04/08/2024 8:15 AM STEMMING MACHINE OPERATOR Height 163.8 cm (5' 4.5) 07/21/2023 3:44 PM CDT Body Mass Index 19.77 07/21/2023 3:44 PM CDT Plan of Treatment Upcoming Encounters Date Type Department Care Team (Late st Contact Info) Description 05/18/2024 2:45 PM STEMMING MACHINE OPERATOR Office Visit [address] [phone] Adithya Blair MD [address] [place] [address] Health Maintenance Due Date Last Done Comments Tdap 1999 Pneumococcal series for age 6-49 (1 of 2 - PCV) 2007 Tetanus booster 2008 Depression screening for age 12+ 07/26/2022 07/26/2021, 07/22/2021, 07/22/2021 COVID-19 vaccine series (2023- season) 2023 02/19/2022, 12/18/2021, 07/09/2020 Influenza for age 9-49 12/06/2023 BMI (ht and wt on same day) for age 18+ 07/20/2024 07/21/2023, 10/11/2021, 07/26/2021, Additional history exists Pap test for age 21-65 08/04/2025 , 08/04/2022, 07/26/2021, Additional history exists HIV for age 15-65 Completed 04/27/2023 Hepatitis C screening for ag e 18-79 Completed 04/27/2023 Procedures Procedure Name Priority Date/Time Associated Diagnosis Comments URINALYSIS MACROSCOPIC - [facility] ONLY POC DIP ([facility]) Routine 04/08/2024 9:18 AM STEMMING MACHINE OPERATOR Pelvic pain URINALYSIS MICROSCOPIC Routine 04/08/2024 9:17 AM STEMMING MACHINE OPERATOR Pelvic pain URINE CULTURE Routine 04/08/2024 9:17 AM STEMMING MACHINE OPERATOR Pelvic pain URINE Routine 04/08/2024 9:17 AM STEMMING MACHINE OPERATOR Pelvic pain C-REACTIVE PROTEIN Routine 04/08/2024 9: 17 AM STEMMING MACHINE OPERATOR Pelvic pain COMP METABOLIC PANEL Routine 04/08/2024 9:17 AM STEMMING MACHINE OPERATOR Pelvic pain CBC WITH AUTO DIFFERENTIAL Routine 04/08/2024 9:17 AM STEMMING MACHINE OPERATOR Pelvic pain ESTRADIOL LC/MS Routine 03/24/2024 3:33 PM STEMMING MACHINE OPERATOR Anxiety ANTI HIV 1/2 Routine 04/27/2023 3:05 PM STEMMING MACHINE OPERATOR H/o presumptive pelvic inflammatory disease (02/2023) ANTI HCV Routine 04/27/2023 3:05 PM STEMMING MACHINE OPERATOR H/o presumptive pelvic inflammatory disease (02/2023) HPV HIGH RISK Routine 08/04/2022 3:00 PM CDT from Last 3 Months or Most Recently Relevant to Health Maintenance Results * (ABNORMAL) POCT Urinalysis Dipstick Only (04/08/2024 9:18 AM STEMMING MACHINE OPERATOR) PH 6.0 5.0 - 8.0 [facility] SPECIFIC GRAVITY 1.020 1.001 - 1.035 [facility] GLUCOSE NEGATIVE NEGATIVE [facility] BILIRUBIN NEGATIVE NEGATIVE [facility] KETONES NEGATIVE NEGATIVE [facility] OCCULT BLOOD TRACE(A) NEGATIVE [facility] PROTEIN NEGATIVE NEGATIVE [facility] NITRITE NEGATIVE NEGATIVE [facility] LEUKOCYTE ESTERASE NEGATIVE NEGATIVE [facility] Urine URINE SPECIMEN / Unknown 04/08/2024 9:18 AM STEMMING MACHINE OPERATOR 04/08/2024 9:19 AM STEMMING MACHINE OPERATOR us Arline GONZALEZ URINE Final Resu lt [facility] [address] [place] [address], [facility] [address] [place] [address] * URINALYSIS MICROSCOPIC (04/08/2024 9:17 AM STEMMING MACHINE OPERATOR) RBC 0-2 0-2, None Seen /HPF 04/08/2024 3:00 PM STEMMING MACHINE OPERATOR [facility] WBC 0-2 0-2, 3-5, None Seen /HPF 04/08/2024 3:00 PM STEMMING MACHINE OPERATOR [facility] BACTERIA None Seen None Seen, Rare, Few Bacteria/ HPF 04/08/2024 3:00 PM STEMMING MACHINE OPERATOR [facility] EPITHELIAL CELLS None Seen None Seen, Few Epi/HPF 04/08/2024 3:00 PM STEMMING MACHINE OPERATOR [facility] HYALINE CASTS 0-2 0-2, 3-5 /LPF 04/08/2024 3:00 PM STEMMING MACHINE OPERATOR [facility] Urine URINE SPECIMEN / Unknown Non-Blood / Unknown 04/08/2024 9:17 AM STEMMING MACHINE OPERATOR 04/08/2024 9:17 AM STEMMING MACHINE OPERATOR Arline GONZALEZ URINE Final Resu lt [facility] [address] [place] [address], [place] * URINE CULTURE (04/08/2024 9:17 AM STEMMING MACHINE OPERATOR) CULTURE No growth (<1,000 CFU/mL) 04/09/2024 3:09 PM STEMMING MACHINE OPERATOR [facility] Urine URINE SPECIMEN / Unknown Non-Blood / Unknown 04/08/2024 9:17 AM STEMMING MACHINE OPERATOR 04/08/2024 9:17 AM STEMMING MACHINE OPERATOR Arline GONZALEZ MICROBIOLOGY Final Resu lt [facility] [address] [place] [address], [place] * C-REACTIVE PROTEIN (04/08/2024 9:17 AM STEMMING MACHINE OPERATOR) C-REACTIVE PROTEIN <3.0 <8.0 mg/L [facility] Blood BLOOD SPECIMEN / Unknown 04/08/2024 9:17 AM STEMMING MACHINE OPERATOR 04/08/2024 9:18 AM STEMMING MACHINE OPERATOR us Arline GONZALEZ CHEMISTRY Final Resu lt [facility] [address] [place] [address], [place] [phone] [facility] [address] [place] [address] * (ABNORMAL) CBC AND DIFFERENTIAL (04/08/2024 9:17 AM STEMMING MACHINE OPERATOR) [facility] WHITE BLOOD CELL COUNT 6.4 3.8 - 10.8 Thousand/u L [facility] RED BLOOD CELL COUNT 4.90 3.80 - 5.10 Million/uL [facility] HEMOGLOBIN 14.2 11.7 - 15.5 g/dL [facility] HEMATOCRIT 44.8 35.0 - 45.0 % [facility] MCV 91.4 80.0 - 100.0 fL [facility] MCH 29.0 27.0 - 33.0 pg [facility] MCHC 31.7(L) 32.0 - 36.0 g/dL [facility] Comment: For adults, a slight decrease in the calculated MCHC value (in the range of 30 to 32 g/dL) is most likely not clinically significant; however, it should be interpreted with caution in correlation with other red cell parameters and the patient's clinical condition. RDW 11.8 11.0 - 15.0 % [facility] PLATELET COUNT 238 140 - 400 Thousand/u L [facility] MPV 12.6(H) 7.5 - 12.5 fL [facility] ABSOLUTE NEUTROPHILS 4,096 1,500 - 7,800 cells/uL [facility] ABSOLUTE LYMPHOCYTES 1,786 850 - 3,900 cells/uL [facility] ABSOLUTE MONOCYTES 442 200 - 950 cells/uL [facility] ABSOLUTE EOSINOPHILS 58 15 - 500 cells/uL [facility] ABSOLUTE BASOPHILS 19 0 - 200 cells/uL [facility] NEUTROPHILS 64 % [facility] LYMPHOCYTES 27.9 % [facility] MONOCYTES 6.9 % [facility] EOSINOPHILS 0.9 % [facility] BASOPHILS 0.3 % [facility] Blood BLOOD SPECIMEN / Unknown 04/08/2024 9:17 AM STEMMING MACHINE OPERATOR 04/08/2024 9:18 AM STEMMING MACHINE OPERATOR Arline GONZALEZ HEMATOLOGY Final Resu lt [facility] [address] [place] [address], [facility] [address] [place] [address] * URINE (04/08/2024 9:17 AM STEMMING MACHINE OPERATOR) Pathologist [facility] HCG, QL, URINE NEGATIVE NEGATIVE [facility] Urine URINE SPECIMEN / Unknown 04/08/2024 9:17 AM STEMMING MACHINE OPERATOR 04/08/2024 9:18 AM STEMMING MACHINE OPERATOR Arline GONZALEZ URINE Final Resu lt Performing Organization Address City/[facility]/ZIP Co de Phone Number [facility] [address] [place] [address], [facility] [address] [place] [address] * (ABNORMAL) COMP METABOLIC PANEL (04/08/2024 9:17 AM STEMMING MACHINE OPERATOR) GLUCOSE 89 65 - 99 mg/dL [facility] Comment: Fasting reference interval UREA NITROGEN (BUN) 15 7 - 25 mg/dL [facility] CREATININE 0.69 0.50 - 0.97 mg/dL [facility] EGFR 116 > OR = 60 mL/min/1. 73m2 [facility] BUN/CREATININE RATIO SEE NOTE: 6 - 22 (calc) [facility] Comment: Not Reported: BUN and Creatinine are within reference range. SODIUM 138 135 - 146 mmol/L [facility] POTASSIUM 4.1 3.5 - 5.3 mmol/L [facility] CHLORIDE 105 98 - 110 mmol/L [facility] CARBON DIOXIDE 23 20 - 32 mmol/L [facility] CALCIUM 9.3 8.6 - 10.2 mg/dL [facility] PROTEIN, TOTAL 7.7 6.1 - 8.1 g/dL [facility] ALBUMIN 4.7 3.6 - 5.1 g/dL [facility] GLOBULIN 3.0 1.9 - 3.7 g/dL (calc) [facility] ALBUMIN/GLOBULIN RATIO 1.6 1.0 - 2.5 (calc) [facility] BILIRUBIN, TOTAL 1.3(H) 0.2 - 1.2 mg/dL [facility] ALKALINE PHOSPHATASE 58 31 - 125 U/L [facility] AST 16 10 - 30 U/L [facility] ALT 16 6 - 29 U/L [facility] Blood BLOOD SPECIMEN / Unknown 04/08/2024 9:17 AM STEMMING MACHINE OPERATOR 04/08/2024 9:18 AM STEMMING MACHINE OPERATOR Arline GONZALEZ CHEMISTRY Final Resu lt [employer] [facility] [address] [place] [address], [facility] [address] [place] [address] * ESTRADIOL LC/MS (03/24/2024 3:33 PM STEMMING MACHINE OPERATOR) Pathologist [facility] ESTRADIOL,ULTRAS ENSITIVE, LC/MS 350 pg/mL [facility], Comment: Female Reference Ranges for Estradiol, Ultrasensitive (pg/mL): Follicular Phase: 39-375 Luteal Phase: 48-440 Postmenopausal Phase: < or = 10 This test was developed and its analytical performance characteristics have been determined by [facility]. It has not been cleared or approved by FDA. This assay has been validated pursuant to the CLIA regulations and is used for clinical purposes. Blood BLOOD SPECIMEN / Unknown 03/24/2024 3:33 PM STEMMING MACHINE OPERATOR 03/24/2024 3:33 PM STEMMING MACHINE OPERATOR Baltazar Diaz MD SEND OUTS Final Result Performing Organization Address [facility]/ZIP Co de Phone Number [employer] [facility] [address] [place] [address], [facility] [facility], [address] [place] [address] * ANTI HCV (04/27/2023 3:05 PM STEMMING MACHINE OPERATOR) Pathologist [facility] HEPATITIS C ANTIBODY Non-Reacti ve Non-React jude 04/27/2023 10:08 PM STEMMING MACHINE OPERATOR [facility] Comment:Please note, per www .CDC.gov: If a patient is known to be at high risk of HCV infection, or is symptomatic, and the physician's suspicion of HCV infection is high, HCV RNA testing is often employed and is of diagnostic value, even after an initial negative anti-HCV test result. Blood BLOOD SPECIMEN / Unknown Venipuncture / Unknown 04/27/2023 3:05 PM STEMMING MACHINE OPERATOR 04/27/2023 3:10 PM STEMMING MACHINE OPERATOR us Jazzmine Meadows MD SEND OUTS Fi nal Result [facility] [address] [place] [address], * ANTI HIV 1/2 (04/27/2023 3:05 PM STEMMING MACHINE OPERATOR) Pathologist [facility] HIV-1/HIV-2 SCREEN Non-Reacti ve Non-Reacti ve 04/27/2023 10:58 PM STEMMING MACHINE OPERATOR [facility] Comment:HIV-1 p24 and HIV-1/ HIV-2 Ab Not Detected. Blood BLOOD SPECIMEN / Unknown Venipuncture / Unknown 04/27/2023 3:05 PM STEMMING MACHINE OPERATOR 04/27/2023 3:10 PM STEMMING MACHINE OPERATOR Jazzmine Meadows MD SEND OUTS Fi nal Result [facility] [address] [place] [address], * HPV HIGH RISK (08/04/2022 3:00 PM CDT) TYPE 16 Negative Negative 08/12/2022 5:31 AM CDT [facility] TYPE 18 Negative Negative 08/12/2022 5:31 AM CDT [facility] OTHER HIGH RISK TYPES Negative Negative 08/12/2022 5:31 AM CDT [facility] Other (Cervical) 08/04/2022 3:00 PM CDT 08/08/2022 12:51 PM CDT Narrative [facility] - 08/12/2022 5:31 AM CDT HPV types 16, 18, 31, 33, 35, 39, 45, 51, 52, 56, 58, 59, 66 and 68 DNA were undetectable or below the pre-set threshold. Methodology: Eloisa Bala 4800 HPV Test us Doctor Unknown MICROBIOLOGY Final Result [facility] [address] [place] [address], from Last 3 Months or Most Recently Relevant to Health Maintenance Care Teams Customs Compliance Analyst Relationship Specialty Start Date End Date Jazzmine Meadows MD [address] [place] [address] PCP - General Family Practice 10/28/23
[2024-05-12 00:26] VITALS: BP 131/79; PULSE 110; RESP 16; TEMP 36.8; O2SAT 100; BMI 22.6
[2024-05-12] MEDS: 0.9 % SODIUM CHLORIDE 1000 ml 1,000 ML IV (01:02)
[2024-05-12] MEDS: ONDANSETRON 2 MG/ML inj 4 MG IVP (01:02)
[2024-05-12] MEDS: LOPERAMIDE HCL 2 MG CAPSULE 4 MG PO (01:02)
--- NOTE | 2024-05-12 01:08 | ED.GENADULT ---
HPI - General Adult General Chief complaint: Abdominal Pain Stated complaint: left side abdominal pain Time Seen by Provider: 05/12/24 00:35 Source: patient Mode of arrival: ambulatory Limitations: no limitations History of Present Illness HPI narrative: 34-year-old female presents the emergency department with 2 hours of nausea vomiting and diarrhea. No fever. No trauma or injury. No bloody stools, no bloody vomit. Tried taking some Pedialyte but continued to vomit. Daughters have had similar symptoms recently. No prior history of abdominal surgeries. Very anxious and I have to spend significant amounts of time with her to convince her to take basic treatments. Reports left lower quadrant and then left upper quadrant area abdominal pain on exam to me. Clearly showing me that it is diffuse. Did not try Tylenol, ibuprofen, Imodium or other typical treatments prior to coming to ED. kettle fry cook operator used for entire exam and interview. Denies chance of . Documented allergies to latex, lactated Ringer's, tramadol and the COVID vaccine. History reportedly positive for hypothyroidism, anxiety and prior PID. As well as pots syndrome. ROS is notable for the GI symptoms as above only, otherwise denies times 12 systems. Related Data Home Medications ?Medication ?Instructions ?Recorded ?Confirmed propranolol 10 mg tablet 10 - 20 mg PO BID 03/03/23 12/23/23 naproxen 250 mg tablet 250 mg PO BID PRN 03/26/23 12/23/23 Previous Rx's ?Medication ?Instructions ?Recorded fluconazole 150 mg tablet 150 mg PO Q3D 2 doses #2 tabs 03/03/23 clotrimazole-betamethasone 1 1 applic topical BID PRN itching 03/26/23 %-0.05 % topical cream #15 grams Allergies Allergy/AdvReac Type Severity Reaction Status Date / Time latex Allergy Intermediate Rash Verified 05/12/24 00:50 Ringer's solution,lactated Allergy Unknown Difficulty Verified 05/12/24 00:50 Breathing tramadol AdvReac Intermediate Headache Verified 05/12/24 00:50 COVID-19 vacc, bv (Orig, AdvReac Unknown Difficulty Verified 05/12/24 00:50 Omicron BA.4/5) (Pfizer) Breathing (From Pfizer COVID Bival(12y up)(PF)) [facility] Medical History Postural orthostatic tachycardia syndrome ?I49.8 - Other specified cardiac arrhythmias (ICD-10) Menorrhagia ?N92.0 - Excessive and frequent menstruation with regular cycle (ICD-10) History of iron deficiency anemia ?Z86.2 - Personal history of diseases of the blood and blood-forming organs and certain disorders involving the immune mechanism (ICD-10) History of abnormal cervical Pap smear ?Z87.42 - Personal history of other diseases of the female genital tract (ICD-10) Fibroadenoma of left breast ?D24.2 - Benign neoplasm of left breast (ICD-10) Intermittent asthma ?J45.20 - Mild intermittent asthma, uncomplicated (ICD-10) History of hypothyroidism ?Z86.39 - Personal history of other endocrine, nutritional and metabolic disease (ICD-10) History of COVID-19 (03/2021) ?Z86.16 - Personal history of COVID-19 (ICD-10) Anxiety ?F41.9 - Anxiety disorder, unspecified (ICD-10) Family History Aunt Uterine cancer Maternal Grandmother Uterine cancer Paternal Grandfather Diabetes High blood pressure Social History Smoking Status: Unknown if ever smoked How often do you have a drink containing alcohol: never AUDIT-C Alcohol total score: 0 Non-prescribed substance use: denies use Exam Const: Vital Signs, click to edit/add: Vital Signs - 24 hr 05/12/24 00:26 05/12/24 01:19 Temperature 98.2 F Pulse Rate [Pulse Oximeter] 110 H Respiratory Rate 16 Blood Pressure [Ri ght Upper Arm] 131/79 Pulse Oximetry 100 100 Oxygen Delivery Me thod Room Air Documenting provider has reviewed patient's vital signs: yes Other: Anxious. Difficult to redirect. HENMT: Common normals: normocephalic, moist oral mucous membranes and oropharynx normal Head and scalp: normocephalic Face and sinus: normal facial exam Throat: posterior oropharynx normal Eye: Common normals: conjunctivae normal General eye: normal appearance of both eyes Conjunctiva: conjunctiva(e) normal Neck & C-Spine: Common normals: full ROM and no lymphadenopathy Resp: Common normals: normal respiratory effort, no use of accessory muscles and clear to auscultation bilaterally Effort & inspection: able to speak in complete sentences Auscultation: clear to auscultation bilaterally Cardio: Common normals: regular rate, regular rhythm, S1 normal heart sound, S2 normal heart sound and no murmurs Rate: regular rate Rhythm: regular rhythm Heart sounds: S1 normal and S2 normal GI: Common normals: Normal to inspection, nondistended, normoactive bowel sounds present, soft to palpation, no hepatosplenomegaly and no masses Palpation: soft and no hepatosplenomegaly Other: Mildly diffusely tender to the left side but with no rebound tenderness or guarding Extremity: Common normals: normal to inspection, full ROM and normal capillary refill Neuro: Common normals: moves all extremities Speech: speech normal Psych: Appearance: grossly normal Mood and affect: anxious Insight: fair Judgement: fair Skin: Common normals: no rashes or lesions noted General skin exam: no rashes or lesions noted Course Course ED Course: 34-year-old female with nausea vomiting for 2 hours. Tachycardic but no signs of hypotension or fever. Exam is suspicious for gastroenteritis, as is history with 2 similar symptoms in household contacts. Lower suspicion for pancreatitis, ischemic bowel, inflammatory colitis, gynecological etiology, amongst others. Will start with 4 mg of IV Zofran, 1 L of normal saline and 4 mg of Imodium. We had significant difficulty commencing her to take the medication, delaying the care of other patients in the emergency department. Reevaluation(s) Time of Reevaluation #1: 02:04 Reevaluation #1: Normal labs reviewed with patient. After additional very lengthy discussion, she ultimately did agree to take the Imodium as well. She is feeling much better. No further vomiting or diarrhea here in the ED. patient counseled on alarm symptoms that would warrant return to the ED. She is highly encouraged to take another dose of the Zofran in 6 hours. Prescription given through [employer]. She may continue on the Zofran every 6 hours as needed. Counseled on continued use of [id number] ibuprofen every 2 hours as needed, push fluids. Written instructions provided, kettle fry cook operator used for all discussion and exam today. She verbalizes understanding and agreement and is thankful for the additional time that it took to convince her to take the medications that have made such profound improvement in how she is feeling. Normal labs reviewed as well. Vital Signs Vital signs: Initial Vital Signs Temperature 98.2 F 05/12/24 00:26 Temperature Source Temporal Artery Scan 05/12/24 00:26 Pulse Rate 110 H 05/12/24 00:26 Respiratory Rate 16 05/12/24 00:26 Blood Pressure 131/79 05/12/24 00:26 Blood Pressure Mean 96 05/12/24 00:26 Blood Pressure Position High-Fowlers 05/12/24 00:26 Pulse Oximetry 100 05/12/24 00:26 Oxygen Delivery Method Room Air 05/12/24 00:26 Vital Signs Temperature 98.2 F 05/12/24 00:26 Pulse Rate 110 H 05/12/24 00:26 Respiratory Rate 16 05/12/24 00:26 Blood Pressure 131/79 05/12/24 00:26 Pulse Oximetry 100 05/12/24 00:26 Oxygen Delivery Method Room Air 05/12/24 00:26 Temperature 98.2 F 05/12/24 00:26 Pulse Rate 110 H 05/12/24 00:26 Respiratory Rate 16 05/12/24 00:26 Blood Pressure 131/79 05/12/24 00:26 Pulse Oximetry 100 05/12/24 01:19 Oxygen Delivery Method Room Air 05/12/24 00:26 Medications Administered Medications: Generic Name Dose Route Start Last Admin Trade Name Freq PRN Reason Stop Dose Admin Sodium Chloride 1,000 mls @ 1,000 mls/hr 05/12/24 00:52 05/12/24 01:40 0.9 % Sodium Chloride 1000 Ml IV 05/12/24 01:51 Infused .Q1H MAIKEL Infusion Loperamide HCl 4 mg 05/12/24 00:52 05/12/24 01:02 Loperamide Hcl 2 Mg Capsule PO 05/12/24 00:53 4 mg ONCE ONE Administration Ondansetron HCl 4 mg 05/12/24 00:52 05/12/24 01:02 Ondansetron 2 Mg/Ml Inj IVP 05/12/24 00:53 4 mg ONCE ONE Administration Medical Decision Making Lab Data Lab results reviewed: Yes I reviewed the patient's lab results Lab results narrative: Mild leukocytosis, otherwise reassuring. Labs: Lab Results 05/12/24 Range/Units 01:05 WBC 14.13 H (4.50-11.00) K/uL RBC 4.85 (4.00-5.20) m/uL Hgb 13.9 (12.0-16.0) gm/dL Hct 42.1 (33.0-51.0) % MCV 87 (80-100) fL MCH 29 (26-34) pg MCHC 33 (32-36) gm/dL RDW Coeff of Ann 12.0 (11.5-15.5) % Plt Count 187 (140-440) K/uL Neut % (Auto) 86.4 H (42.0-72.0) % Lymph % (Auto) 5.7 L (20-44) % Foster % (Auto) 7.6 (0.0-11.0) % Eos % (Auto) 0.1 (0.0-7.0) % Baso % (Auto) 0.1 (0.0-3.0) % Neut # (Auto) 12.20 H (1.7-7.0) K/uL Lymph # (Auto) 0.80 L (0.90-2.90) K/uL Foster # (Auto) 1.10 H (0.00-0.90) K/UL Eos # (Auto) 0.00 (0.00-0.50) K/uL Baso # (Auto) 0.00 (0.00-0.30) K/uL Abs Immat Gran (auto) 0.00 (0.00-0.30) K/uL Imm/Tot Granulo (auto) 0.1 % Sodium 138 (135-149) mmol/L Potassium 3.5 L (3.6-5.1) mmol/L Chloride 107 (96-114) mmol/L Carbon Dioxide 21 (20-32) mmol/L Anion Gap 10 (7-15) mEq/L BUN 15 (5-24) mg/dL Creatinine 0.6 (0.5-1.5) mg/dL Estimated Creat Clear 121.35 Estimated GFR 119 ml/min Glucose 97 (60-115) mg/dL Lactate 0.8 (0.5-1.9) mmol/L Calcium 8.6 (8.4-10.6) mg/dL Total Bilirubin 1.2 (0.1-1.5) mg/dL AST 31 (12-35) U/L ALT 26 (4-35) U/L Alkaline Phosphatase 62 (40-150) U/L C-Reactive Protein < 0.5 L (0.5-1.0) mg/dL Total Protein 7.6 (6.0-8.3) g/dL Albumin 4.5 (3.3-5.0) g/dL Lipase 51 (23-300) U/L Discharge Plan Discharge Clinical Impression: Gastroenteritis Patient Disposition: Home, Self-Care Instructions: Gastroenteritis (DC) Additional Instructions: As we discussed, your symptoms are consistent with gastroenteritis, also known as the stomach flu. The most common strain of this that we are seeing right now is norovirus. They are all treated the same. You were given an anti nausea medicine also known as ondansetron. This medication is remarkably effective at helping with nausea and vomiting. It will wear off, so I recommend that you take a dose under the tongue at 7:00 a.m. again. After that dose, you may continue taking it every 6 hours if needed but I suspect that you will likely not need further doses. Drink lots of fluids today and slowly advance your food intake once you are feeling better. It is common to have left-sided abdominal cramping with diarrhea. Hopefully, the Imodium which is the antidiarrhea medicine that your given is helpful at reducing this. For many, only a single dose of the Imodium is needed but it is safe for you to continue taking 1 tablet up to every 2 hours if you continue to have diarrhea. It is important that you are taking medicine to help control the symptoms so that you do not get dehydrated or more ill. You should come to an emergency department if you have bloody diarrhea, severe weakness, bloody vomit or high fever. It is okay to use Tylenol 1000 mg every 6 hours and or ibuprofen 600 mg every 6 hours as needed for abdominal discomfort. [place] ya comentamos, blas s?ntomas son compatibles con la gastroenteritis, tambi?n conocida lul gripe estomacal. La cepa m?s com?n que estamos viendo en [place] momento es el norovirus. Todos reciben el mismo tratamiento. Le dieron un medicamento contra las n?useas, tambi?n conocido lul ondansetr?n. [place] medicamento es muy eficaz para aliviar las n?useas y los v?mitos. [place] efecto desaparecer?, por lo que le recomiendo que vuelva a [place] shae dosis debajo de la lengua a las 7:00 a. m. Despu?s de chicho dosis, puede seguir lucie?ndolo cada 6 horas si es necesario, ranjana sospecho que probablemente no necesitar? m?s dosis. [place] muchos l?quidos hoy y aumente lentamente la ingesta de alimentos shae vez que se sienta mejor. Es com?n tener calambres abdominales en el lado michelle con diarrea. Con suerte, el Imodium, que es el medicamento antidiarreico que le dieron, ser? ?til para reducir esto. Para muchos, solo se necesita shae dosis ?daly de Imodium, ranjana es seguro que contin?e tomando 1 tableta cada 2 horas si contin?a teniendo diarrea. Es importante que tome medicamentos para ayudar a controlar los s?ntomas y evitar deshidratarse o enfermarse m?s. Debe acudir a un servicio de urgencias si tiene diarrea con lakhwinder, debilidad intensa, v?mitos con lakhwinder o fiebre jamey. Est? pieter usar Tylenol 1000 mg cada 6 horas o ibuprofeno 600 mg cada 6 horas seg?n sea necesario para el malestar abdominal. Activity Level: Activity as Tolerated Discharge Diet: Regular Prescriptions: No Action propranolol 10 mg tablet 10 - 20 mg PO BID fluconazole 150 mg tablet 150 mg PO Q3D Qty: 2 0RF naproxen 250 mg tablet 250 mg PO BID PRN clotrimazole-betamethasone 1-0.05 % cream 1 applic topical BID PRN (Reason: itching) Qty: 15 0RF Follow Up/Referrals: Provider,Not a Local [Primary Care Provider] - Stand Alone Forms: MyHealth Info Instructions
[2024-05-12 01:09] LABS: Lactate* 0.8 mmol/L (0.5-1.9)
[2024-05-12 01:11] LABS: Basophils Percent Auto 0.1 % (0.0-3.0); Eosinophils Percent Auto 0.1 % (0.0-7.0); Hematocrit 42.1 % (33.0-51.0); Hemoglobin* 13.9 gm/dL (12.0-16.0); Immature Granulocytes Pct Auto 0.1 %; Lymphocytes Percent Auto 5.7 % (20-44); Mean Corpuscular HGB Conc 33 gm/dL (32-36); Mean Corpuscular Hemoglobin 29 pg (26-34); Mean Corpuscular Volume 87 fL (80-100); Monocytes Percent Auto 7.6 % (0.0-11.0); Neutrophils Percent Auto 86.4 % (42.0-72.0); Platelet Count* 187 K/uL (140-440); Red Blood Count 4.85 m/uL (4.00-5.20); White Blood Count* 14.13 K/uL (4.50-11.00)
[2024-05-12 01:12] LABS: Slide Review Reflex No
--- OUTSIDE RECORDS SUMMARY | 2024-05-12 01:16 | XMS_ITS | Clinical Summary ---
Author Organization [employer] [facility] Address [place], [place] [address] Care Team Providers Care Sucker Machine Operator Name Role Phone Jazzmine Meadows MD Primary [...] (04/28/2023): Biopsy proven in [place]. Mammogram/US at [facility] in 2022. Abnormal uterine bleeding 04/28/2023 POTS [...] Department Care Team Description 2024 Patient Outreach [facility] Care Management - Care Management Navigation/[facility] [address] [place] [address] Freddy Tang-Community Resource Navigation 04/18/2024 4:00 PM SYSTEMS ENGINEERING MANAGER Office Visit [facility] [address] [place] [address] Karthikeyan Joe, ADALBERTO Eye Exam (CEE) 04/18/2024 Telephone [facility] [address] [place] [address] Baltazar Diaz MD Referral (INTEGRATIVE MEDICINE) 04/18/2024 Travel 04/18/2024 Telephone [facility] [address] [place] [address] Arline Lora PA Results (Test Results ) 04/14/2024 Telephone [facility] [address] [place] [address] Jazzmine Meadows MD Referral ([facility] [place]) 04/12/2024 3:20 PM SYSTEMS ENGINEERING MANAGER Telemedicine [address] [phone] Fuad, Bill Macario MD Consult 04/08/2024 7:50 AM SYSTEMS ENGINEERING MANAGER Office Visit [facility] [address] [place] [address] Arline Lora PA Pelvis Pain/problem (Has endometriosis-has been having a lot of pain-had IUD placed to help-lessened bleeding but still having a lot of pain) 04/08/2024 Travel 03/24/2024 3:15 PM SYSTEMS ENGINEERING MANAGER Orders Only [facility] [address] [place] [address] Lab, [facility] 03/24/2024 Travel 02/24/2024 Nurse Triage [facility] [address] [place] [address] Jazzmine Meadows MD UTI (Vaginal odor 15 [...] Comments Blood Pressure 123/83 04/08/2024 8:15 AM SYSTEMS ENGINEERING MANAGER Pulse 73 04/08/2024 8:15 AM SYSTEMS ENGINEERING MANAGER Temperature 36.4 C (97.5 F) 06/06/2023 10:52 PM SYSTEMS ENGINEERING MANAGER Respiratory Rate 18 06/06/2023 10:52 PM SYSTEMS ENGINEERING MANAGER Oxygen Saturation 99% 04/08/2024 8:15 AM SYSTEMS ENGINEERING MANAGER Inhaled Oxygen Concentration - - Weight 53.1 kg (117 lb) 04/08/2024 8:15 AM SYSTEMS ENGINEERING MANAGER Height 163.8 cm (5' 4.5) 07/21/2023 3:44 PM CDT Body Mass Index 19.77 07/21/2023 3:44 PM CDT Plan of Treatment Upcoming Encounters Date Type Department Care Team (Late st Contact Info) Description 05/18/2024 2:45 PM SYSTEMS ENGINEERING MANAGER Office Visit [address] [phone] Adithya Blair MD [address] [place] [address] Health Maintenance Due Date Last Done Comments [...] POC DIP ([facility]) Routine 04/08/2024 9:18 AM SYSTEMS ENGINEERING MANAGER Pelvic pain URINALYSIS MICROSCOPIC Routine 04/08/2024 9:17 AM SYSTEMS ENGINEERING MANAGER Pelvic pain URINE CULTURE Routine 04/08/2024 9:17 AM SYSTEMS ENGINEERING MANAGER Pelvic pain URINE Routine 04/08/2024 9:17 AM SYSTEMS ENGINEERING MANAGER Pelvic pain C-REACTIVE PROTEIN Routine 04/08/2024 9: 17 AM SYSTEMS ENGINEERING MANAGER Pelvic pain COMP METABOLIC PANEL Routine 04/08/2024 9:17 AM SYSTEMS ENGINEERING MANAGER Pelvic pain CBC WITH AUTO DIFFERENTIAL Routine 04/08/2024 9:17 AM SYSTEMS ENGINEERING MANAGER Pelvic pain ESTRADIOL LC/MS Routine 03/24/2024 3:33 PM SYSTEMS ENGINEERING MANAGER Anxiety ANTI HIV 1/2 Routine 04/27/2023 3:05 PM SYSTEMS ENGINEERING MANAGER H/o presumptive pelvic inflammatory disease (02/2023) ANTI HCV Routine 04/27/2023 3:05 PM SYSTEMS ENGINEERING MANAGER H/o presumptive pelvic inflammatory disease (02/2023) HPV HIGH RISK Routine 08/04/2022 3:00 PM CDT from Last 3 Months or Most Recently Relevant to Health Maintenance Results * (ABNORMAL) POCT Urinalysis Dipstick Only (04/08/2024 9:18 AM SYSTEMS ENGINEERING MANAGER) PH 6.0 5.0 - 8.0 [facility] SPECIFIC GRAVITY 1.020 1.001 - 1.035 [facility] GLUCOSE NEGATIVE NEGATIVE [facility] BILIRUBIN NEGATIVE NEGATIVE [facility] KETONES NEGATIVE NEGATIVE [facility] OCCULT BLOOD TRACE(A) NEGATIVE [facility] PROTEIN NEGATIVE NEGATIVE [facility] NITRITE NEGATIVE NEGATIVE [facility] LEUKOCYTE ESTERASE NEGATIVE NEGATIVE [facility] Urine URINE SPECIMEN / Unknown 04/08/2024 9:18 AM SYSTEMS ENGINEERING MANAGER 04/08/2024 9:19 AM SYSTEMS ENGINEERING MANAGER us Arline GONZALEZ URINE Final Resu lt [facility] [address] [place] [address], [facility] [address] [place] [address] * URINALYSIS MICROSCOPIC (04/08/2024 9:17 AM SYSTEMS ENGINEERING MANAGER) RBC 0-2 0-2, None Seen /HPF 04/08/2024 3:00 PM SYSTEMS ENGINEERING MANAGER [facility] WBC 0-2 0-2, 3-5, None Seen /HPF 04/08/2024 3:00 PM SYSTEMS ENGINEERING MANAGER [facility] BACTERIA None Seen None Seen, Rare, Few Bacteria/ HPF 04/08/2024 3:00 PM SYSTEMS ENGINEERING MANAGER [facility] EPITHELIAL CELLS None Seen None Seen, Few Epi/HPF 04/08/2024 3:00 PM SYSTEMS ENGINEERING MANAGER [facility] HYALINE CASTS 0-2 0-2, 3-5 /LPF 04/08/2024 3:00 PM SYSTEMS ENGINEERING MANAGER [facility] Urine URINE SPECIMEN / Unknown Non-Blood / Unknown 04/08/2024 9:17 AM SYSTEMS ENGINEERING MANAGER 04/08/2024 9:17 AM SYSTEMS ENGINEERING MANAGER Arline GONZALEZ URINE Final Resu lt [facility] [address] [place] [address], [place] * URINE CULTURE (04/08/2024 9:17 AM SYSTEMS ENGINEERING MANAGER) CULTURE No growth (<1,000 CFU/mL) 04/09/2024 3:09 PM SYSTEMS ENGINEERING MANAGER [facility] Urine URINE SPECIMEN / Unknown Non-Blood / Unknown 04/08/2024 9:17 AM SYSTEMS ENGINEERING MANAGER 04/08/2024 9:17 AM SYSTEMS ENGINEERING MANAGER Arline GONZALEZ MICROBIOLOGY Final Resu lt [facility] [address] [place] [address], [place] * C-REACTIVE PROTEIN (04/08/2024 9:17 AM SYSTEMS ENGINEERING MANAGER) C-REACTIVE PROTEIN <3.0 <8.0 mg/L [facility] Blood BLOOD SPECIMEN / Unknown 04/08/2024 9:17 AM SYSTEMS ENGINEERING MANAGER 04/08/2024 9:18 AM SYSTEMS ENGINEERING MANAGER us Arline GONZALEZ CHEMISTRY Final Resu lt [facility] [address] [place] [address], [place] [phone] [facility] [address] [place] [address] * (ABNORMAL) CBC AND DIFFERENTIAL (04/08/2024 9:17 AM SYSTEMS ENGINEERING MANAGER) [facility] WHITE BLOOD CELL COUNT 6.4 3.8 - [...] BLOOD SPECIMEN / Unknown 04/08/2024 9:17 AM SYSTEMS ENGINEERING MANAGER 04/08/2024 9:18 AM SYSTEMS ENGINEERING MANAGER Arline GONZALEZ HEMATOLOGY Final Resu lt [facility] [address] [place] [address], [facility] [address] [place] [address] * URINE (04/08/2024 9:17 AM SYSTEMS ENGINEERING MANAGER) Pathologist [facility] HCG, QL, URINE NEGATIVE NEGATIVE [facility] Urine URINE SPECIMEN / Unknown 04/08/2024 9:17 AM SYSTEMS ENGINEERING MANAGER 04/08/2024 9:18 AM SYSTEMS ENGINEERING MANAGER Arline GONZALEZ URINE Final Resu lt Performing Organization Address City/[facility]/ZIP Co de Phone Number [facility] [address] [place] [address], [facility] [address] [place] [address] * (ABNORMAL) COMP METABOLIC PANEL (04/08/2024 9:17 AM SYSTEMS ENGINEERING MANAGER) GLUCOSE 89 65 - 99 mg/dL [facility] [...] BLOOD SPECIMEN / Unknown 04/08/2024 9:17 AM SYSTEMS ENGINEERING MANAGER 04/08/2024 9:18 AM SYSTEMS ENGINEERING MANAGER Arline GONZALEZ CHEMISTRY Final Resu lt [facility] [address] [place] [address], [facility] [address] [place] [address] * ESTRADIOL LC/MS (03/24/2024 3:33 PM SYSTEMS ENGINEERING MANAGER) Pathologist [facility] ESTRADIOL,ULTRAS ENSITIVE, LC/MS 350 pg/mL [facility], Comment: Female Reference Ranges for Estradiol, Ultrasensitive (pg/mL): Follicular Phase: 39-375 Luteal Phase: 48-440 Postmenopausal Phase: < or = 10 This test was developed and its analytical performance characteristics have been determined by [facility]. It has not been cleared or approved by FDA. This assay has been validated pursuant to the CLIA regulations and is used for clinical purposes. Blood BLOOD SPECIMEN / Unknown 03/24/2024 3:33 PM SYSTEMS ENGINEERING MANAGER 03/24/2024 3:33 PM SYSTEMS ENGINEERING MANAGER Baltazar Diaz MD SEND OUTS Final Result Performing Organization Address [facility]/ZIP Co de Phone Number [facility] [address] [place] [address], [facility], [address] [place] [address] * ANTI HCV (04/27/2023 3:05 PM SYSTEMS ENGINEERING MANAGER) Pathologist [facility] HEPATITIS C ANTIBODY Non-Reacti ve Non-React jude 04/27/2023 10:08 PM SYSTEMS ENGINEERING MANAGER [facility] Comment:Please note, per www .CDC.gov: If a patient is known to be at high risk of HCV infection, or is symptomatic, and the physician's suspicion of HCV infection is high, HCV RNA testing is often employed and is of diagnostic value, even after an initial negative anti-HCV test result. Blood BLOOD SPECIMEN / Unknown Venipuncture / Unknown 04/27/2023 3:05 PM SYSTEMS ENGINEERING MANAGER 04/27/2023 3:10 PM SYSTEMS ENGINEERING MANAGER us Jazzmine Meadows MD SEND OUTS Fi nal Result [facility] [address] [place] [address], * ANTI HIV 1/2 (04/27/2023 3:05 PM SYSTEMS ENGINEERING MANAGER) Pathologist [facility] HIV-1/HIV-2 SCREEN Non-Reacti ve Non-Reacti ve 04/27/2023 10:58 PM SYSTEMS ENGINEERING MANAGER [facility] Comment:HIV-1 p24 and HIV-1/ HIV-2 Ab Not Detected. Blood BLOOD SPECIMEN / Unknown Venipuncture / Unknown 04/27/2023 3:05 PM SYSTEMS ENGINEERING MANAGER 04/27/2023 3:10 PM SYSTEMS ENGINEERING MANAGER Jazzmine Meadows MD SEND OUTS Fi nal Result [facility] [address] [place] [address], * HPV HIGH RISK (08/04/2022 3:00 PM CDT) TYPE 16 Negative Negative 08/12/2022 5:[address] [facility] TYPE 18 Negative Negative 08/12/2022 5:31 AM CDT [facility] OTHER HIGH RISK TYPES Negative Negative 08/12/2022 5:31 AM CDT [facility] Other (Cervical) 08/04/2022 3:00 PM CDT 08/08/2022 12:51 PM CDT Narrative [facility] - 08/12/2022 5:31 AM CDT HPV types 16, 18, 31, 33, 35, 39, 45, 51, 52, 56, 58, 59, 66 and 68 DNA were undetectable or below the pre-set threshold. Methodology: Eloisa Bala 4800 HPV Test us Doctor Unknown MICROBIOLOGY Final Result [facility] [address] [place] [address], from Last 3 Months or Most Recently Relevant to Health Maintenance Care Teams Sucker Machine Operator Relationship Specialty Start Date End Date Jazzmine Meadows MD [address] [place] [address] PCP - General Family Practice 10/28/23
[2024-05-12 01:19] VITALS: O2SAT 100
[2024-05-12 01:26] LABS: Albumin* 4.5 g/dL (3.3-5.0); Chloride* 107 mmol/L (96-114); Potassium* 3.5 mmol/L (3.6-5.1); Sodium* 138 mmol/L (135-149)
[2024-05-12 01:29] LABS: Alanine Aminotransferase* 26 U/L (4-35); Alkaline Phosphatase* 62 U/L (40-150); Anion Gap 10 mEq/L (7-15); Aspartate Amino Transferase* 31 U/L (12-35); Bilirubin Total* 1.2 mg/dL (0.1-1.5); Blood Urea Nitrogen* 15 mg/dL (5-24); Carbon Dioxide* 21 mmol/L (20-32); Creatinine* 0.6 mg/dL (0.5-1.5); Est. Creatinine Clearance* 121.35; Estimated Glomerular Filt Rate 119 ml/min; Total Protein* 7.6 g/dL (6.0-8.3)
[2024-05-12 01:37] LABS: Lipase* 51 U/L (23-300)
[2024-05-12 01:42] LABS: C Reactive Protein* < 0.5 mg/dL (0.5-1.0); Calcium* 8.6 mg/dL (8.4-10.6); Glucose* 97 mg/dL (60-115)
[2024-05-12 02:06] VITALS: BP 125/74; PULSE 95; RESP 16; TEMP 36.8; O2SAT 100
[2024-05-12 02:07] VITALS: BP 125/74; PULSE 95; RESP 16; TEMP 36.8
== END 2024-05-12 02:12 | disposition home or self-care (01) ==
PROVIDERS: Emergency Provider Family Medicine
DX: K52.9 Noninfective gastroenteritis and colitis, unspecified (principal)
CPT/HCPCS: 36415; 80053; 83605; 83690; 85025; 86140; 94761; 96374; 99283; 99284; A9270; J2405; J7030